=== PATIENT | male | born 1960 | race Caucasian/White ===

== ENCOUNTER 2022-06-08 07:57 | Outpatient (REF) | payer MEDICAID, SELFPAY ==
[2022-06-08 08:10] LABS: MANUAL DIFF FLAG NO
[2022-06-08 08:20] LABS: Basophils Percent Auto 0.7 % (0-2); Eosinophils Absolute Auto 0.2 X10*3/uL (0.0-0.4); Eosinophils Percent Auto 2.5 % (0-4); Hematocrit 46.3 % (42.0-52.0); Hemoglobin 15.5 g/dl (14.0-18.0); Imm Gran Abs Auto 0.02 X10*3/uL (0.00-0.03); Imm Gran Pct Auto 0.3 % (0.0-0.4); Lymphocytes Absolute Auto 2.3 X10*3/uL (1.2-4.9); Lymphocytes Percent Auto 38.7 % (20-40); Mean Corpuscular HGB Conc 33.5 g/dl (31.0-36.0); Mean Corpuscular Hemoglobin 30.4 pg (27.0-33.0); Mean Corpuscular Volume 90.8 fL (80.0-98.0); Mean Platelet Volume 9.5 fL (9.4-12.4); Monocytes Absolute Auto 0.5 X10*3/uL (0.1-1.2); Monocytes Percent Auto 8.7 % (2-11); Neutrophils Absolute Auto 2.9 x10*3/uL (2.0-8.3); Neutrophils Percent Auto 49.1 % (45-73); Platelet Count 176 X10*3/uL (160-400); Red Cell Distribution Width 12.9 % (11.0-16.0)
[2022-06-08 08:30] LABS: Estimated Average Glucose 226 mg/dL; Hemoglobin A1c % 9.5 %
[2022-06-08 09:16] LABS: Alanine Aminotransferase 31 U/L (0-40); Albumin Level 4.5 g/dL (3.5-5.0); Alkaline Phosphatase 122 U/L (39-117); Anion Gap 16 (12-20); Aspartate Amino Transferase 24 U/L (5-37); Bilirubin Total 0.4 mg/dL (0.0-1.0); Blood Urea Nitrogen 16 mg/dL (9-16); Calcium 9.2 mg/dL (8.4-10.2); Carbon Dioxide 24 mmol/L (22-29); Chloride 106 mmol/L (96-108); Cholesterol 249 mg/dL; Estimated Glomerular Filt Rate > 60; Glucose Random 153 mg/dL (60-115); HDL Cholesterol 36 mg/dL; LDL Cholesterol Calculated 171 mg/dl; Potassium 4.3 mmol/L (3.3-5.1); Sodium 142 mmol/L (135-145); Total Protein 7.1 g/dL (6.5-8.0); Triglycerides 213 mg/dL
[2022-06-08 09:23] LABS: Creatinine Urine 108.16 mg/dL; Microalbum/Creatinine Ratio Ur 4.6 ug/mg cr
[2022-06-08 09:42] LABS: Prostate Specific Antigen Scr 0.12 ng/mL (<0.05-4.0)
[2022-06-08 10:01] LABS: Vitamin B12 239 pg/mL (200-900)
== END 2022-06-08 07:58 | disposition home or self-care (01) ==
LOC: HO.LAB 07:57
PROVIDERS: PCP Internal Medicine; Visit Provider Internal Medicine
DX: Z00.01 Encounter for general adult medical examination with abnormal findings (principal); Z12.5 Encounter for screening for malignant neoplasm of prostate; E11.65 Type 2 diabetes mellitus with hyperglycemia; E78.00 Pure hypercholesterolemia, unspecified; G56.02 Carpal tunnel syndrome, left upper limb; I10 Essential (primary) hypertension; N40.1 Benign prostatic hyperplasia with lower urinary tract symptoms; Z86.010 Personal history of colon polyps
CPT/HCPCS: 36415; 80053; 80061; 82043; 82607; 83036; 84153; 84443; 85025

== ENCOUNTER 2022-09-21 09:18 | Outpatient (REF) | payer MEDICAID, SELFPAY ==
[2022-09-21 10:24] LABS: Estimated Average Glucose 280 mg/dL; Hemoglobin A1c % 11.4 %
[2022-09-21 11:20] LABS: Alanine Aminotransferase 30 U/L (0-40); Albumin Level 4.5 g/dL (3.5-5.0); Alkaline Phosphatase 126 U/L (39-117); Anion Gap 15 (12-20); Aspartate Amino Transferase 26 U/L (5-37); Bilirubin Total 0.7 mg/dL (0.0-1.0); Blood Urea Nitrogen 21 mg/dL (9-16); Calcium 9.6 mg/dL (8.4-10.2); Carbon Dioxide 24 mmol/L (22-29); Chloride 106 mmol/L (96-108); Cholesterol 140 mg/dL; Estimated Glomerular Filt Rate > 60; Glucose Random 190 mg/dL (60-115); HDL Cholesterol 32 mg/dL; LDL Cholesterol Calculated 63 mg/dl; Potassium 4.1 mmol/L (3.3-5.1); Sodium 141 mmol/L (135-145); Total Protein 7.1 g/dL (6.5-8.0); Triglycerides 229 mg/dL
== END 2022-09-21 09:19 | disposition home or self-care (01) ==
LOC: HO.LAB 09:18
PROVIDERS: PCP Internal Medicine; Visit Provider Internal Medicine
DX: E11.65 Type 2 diabetes mellitus with hyperglycemia (principal); E78.00 Pure hypercholesterolemia, unspecified; I10 Essential (primary) hypertension; N40.1 Benign prostatic hyperplasia with lower urinary tract symptoms
CPT/HCPCS: 36415; 80053; 80061; 83036

== ENCOUNTER 2023-01-21 07:34 | Outpatient (REF) | payer MEDICAID, SELFPAY ==
[2023-01-21 08:32] LABS: Estimated Average Glucose 186 mg/dL; Hemoglobin A1c % 8.1 %
[2023-01-21 08:37] LABS: Alanine Aminotransferase 31 U/L (0-40); Albumin Level 4.4 g/dL (3.5-5.0); Alkaline Phosphatase 110 U/L (39-117); Anion Gap 11 (12-20); Aspartate Amino Transferase 19 U/L (5-37); Bilirubin Total 0.4 mg/dL (0.0-1.0); Blood Urea Nitrogen 18 mg/dL (9-16); Calcium 9.5 mg/dL (8.4-10.2); Carbon Dioxide 29 mmol/L (22-29); Chloride 105 mmol/L (96-108); Estimated Glomerular Filt Rate > 60; Glucose Random 245 mg/dL (60-115); Potassium 5.2 mmol/L (3.3-5.1); Sodium 140 mmol/L (135-145); Total Protein 6.9 g/dL (6.5-8.0)
== END 2023-01-21 07:35 | disposition home or self-care (01) ==
LOC: HO.LAB 07:34
PROVIDERS: PCP Internal Medicine; Visit Provider Internal Medicine
DX: E11.9 Type 2 diabetes mellitus without complications (principal); I10 Essential (primary) hypertension; N40.0 Benign prostatic hyperplasia without lower urinary tract symptoms; Z86.010 Personal history of colon polyps
CPT/HCPCS: 36415; 80053; 83036

== ENCOUNTER 2023-05-14 22:56 | Emergency (ER) | payer MEDICAID, SELFPAY ==
--- NOTE | ~2023-05-14 | CT_ITS ---
EXAMINATION: CT HEAD WITHOUT CONTRAST CLINICAL INFORMATION: Acute right-sided headache COMPARISON: None. TECHNIQUE: Contiguous axial imaging was performed from the skull base to vertex without intravenous administration of contrast. Coronal and sagittal reformatted images are performed at the CT scanner. [This CT examination was performed using dose optimization techniques as appropriate, variously including the following: *Automated exposure control *Adjustment of mA and/or kV according to patient size (this includes techniques or standardized protocols for targeted exams where dose is matched to indication/reason for exam; i.e. extremities or head) *Use of iterative reconstruction technique] DLP: 623 mGy-cm. FINDINGS: There is no evidence of acute intracranial hemorrhage or territorial infarction. No abnormal mass-effect or midline shift is seen. Zamorano to white matter differentiation is well preserved. No extra-axial fluid collections are identified. The ventricles are normal in size. There is no abnormal attenuation within the brain parenchyma. There is no osseous abnormality. The mastoid air cells and visualized portions of the paranasal sinuses are well-aerated. CT/CT head/brain wo IV con IMPRESSION: No acute intracranial pathology.
[2023-05-14 22:59] VITALS: BP 166/7; PULSE 65; RESP 18; TEMP 36.9; O2SAT 97; BMI 27.8
--- NOTE | 2023-05-14 23:05 | ED.HA ---
HPI - Headache General Chief Complaint: Stroke Stated Complaint: head pain,numbness Time Seen by Provider: 05/14/23 23:01 Source: patient Mode of arrival: ambulatory Limitations: no limitations History of Present Illness HPI Narrative: Patient diabetic complaining pain in the right temporal area since he woke up in the morning sensory to touch slight nausea no vomiting patient noticed slight numbness on the right side of the face no weakness Related Data Previous Rx's Medication Instructions Recorded ibuprofen 600 mg tablet 600 mg PO Q6H PRN fever or pain 05/15/23 #30 tabs Allergies Allergy/AdvReac Type Severity Reaction Status Date / Time No Known Allergies Allergy Verified 05/14/23 22:59 Review of Systems Review of Systems: Yes all other systems are reviewed and are negative [facility] Social History Social History Alcohol intake: never Smoked in Last 30 Days: No Use of substances other than those prescribed or required for medical reasons: No Advance Directives: No Advance Directives Information Provided: Yes Physical Exam Vital Signs: Vital Signs: Last Vital Signs Temp 98.5 F 05/15/23 01:38 Pulse 56 05/15/23 01:38 Resp 16 05/15/23 01:38 BP 149/77 H 05/15/23 01:38 Pulse Ox 98 05/15/23 01:38 O2 Del Method Room Air 05/15/23 01:38 BMI result Body Mass Index 27.8 Appearance: Alert. Oriented X3. No acute distress. Eyes: PERRLA, No Nystagmus ENT: Pharynx normal. Oral Mucosa moist tender to touch right temporal area, no rash, temporal artery nontender Neck: Normal inspection. Neck supple. CVS: Normal heart rate and rhythm. Pulses normal. Respiratory: No respiratory distress. Equal air entry bilateral, no wheezing/rales/rhonchi Abdomen: Soft and nontender. Bowel sounds are present, no mass palpable, no CVA tenderness Skin: Skin warm and dry. Normal skin color. Normal skin turgor. Extremities: No lower extremity edema. No calf tenderness Neuro: Oriented X 3. No motor deficit. No sensory deficit.No cerebellar signs , cranial nerves II-XII intact NIH Stroke Scale Internal: Initial- Upon Arrival Level of Consciousness: Alert Level of Consciousness Questions: Answers both questions correctly Level of Consciousness Commands: Performs both tasks correctly Best Gaze: Normal Visual: No visual loss Facial Palsy: Normal Motor Arm (Right): No drift Motor Arm (Left): No drift Motor Leg (Right): No drift Motor Leg (Left): No drift Limb Ataxia: Absent Sensory: Normal Best Language: No aphasia Dysarthia: Normal Extinction and Inattention: No abnormality Score: 0 Medications Administered Discontinued Medications Generic Name Dose Route Start Last Admin Trade Name Freq PRN Reason Stop Dose Admin Ketorolac Tromethamine 30 mg 05/15/23 00:19 05/15/23 00:58 Ketorolac Tromethamine 30 Mg/Ml Vial IVPUSH 05/15/23 00:20 30 mg ONCE ONE Administration Lidocaine HCl 5 ml 05/15/23 00:59 05/15/23 01:12 Lidocaine Hcl 2 % Mpf 5 Ml Vial INFILTRATI 05/15/23 01:00 5 ml ONCE ONE Administration Medical Decision Making Medical Decision Making [facility] Narrative: Patient with right scalp pain in C2-C3 dermatomal pattern, no skin rash noticed CT scan negative labs are stable likely patient has tension headache versus occipital neuralgia. Lidocaine 2% was injected at origin of C2 nerve and patient felt much better and pain relieved Differential Diagnosis Differential Diagnoses: The differential diagnosis associated with the presentation includes Tension headache/migraine headaches/occipital neuralgia/temporal arteritis/SAH Lab Data [facility] Lab Attestation statement: I reviewed the patient's lab results. 05/14/23 23:10 05/14/23 23:10 Labs: Lab Results 05/14/23 05/14/23 05/14/23 Range/Units 23:10 23:10 23:10 WBC 10.1 (4.8-10.8) X10*3/uL RBC 4.60 (4.60-5.80) X10*6/uL Hgb 14.4 (14.0-18.0) g/dl Hct 42.7 (42.0-52.0) % MCV 92.8 (80.0-98.0) fL MCH 31.3 (27.0-33.0) pg MCHC 33.7 (31.0-36.0) g/dl RDW 14.0 (11.0-16.0) % Plt Count 158 L (160-400) X10*3/uL MPV 9.8 (9.4-12.4) fL Immature Gran % (Auto) 0.2 (0.0-0.4) % Neut % (Auto) 69.8 (45-73) % Lymph % (Auto) 19.8 L (20-40) % Clark % (Auto) 8.4 (2-11) % Eos % (Auto) 1.4 (0-4) % Baso % (Auto) 0.4 (0-2) % Lymph # (Auto) 2.0 (1.2-4.9) X10*3/uL Clark # (Auto) 0.8 (0.1-1.2) X10*3/uL Eos # (Auto) 0.1 (0.0-0.4) X10*3/uL Baso # (Auto) 0.0 (0.0-0.2) X10*3/uL Abs Immat Gran (auto) 0.02 (0.00-0.03) X10*3/uL Absolute Neuts (auto) 7.0 (2.0-8.3) x10*3/uL Absolute Nucleated RBC 0.000 (0.0-0.012) X10*3/uL Nucleated RBC % (auto) 0.0 (0.0-0.2) /100WBC ESR 7 (0-15) MM/HR PT (11.1-13.3) SEC INR (0.9-1.1) Sodium 142 (135-145) mmol/L Potassium 4.5 (3.3-5.1) mmol/L Chloride 104 (96-108) mmol/L Carbon Dioxide 29 (22-29) mmol/L Anion Gap 14 (12-20) BUN 14 (9-16) mg/dL Creatinine 0.97 (0.5-1.4) mg/dL Estim Creat Clear Calc 85.5 Estimated GFR > 60 POC Glucose (60-115) mg/dL Random Glucose 314 H (60-115) mg/dL Calcium 10.1 D (8.4-10.2) mg/dL Total Bilirubin 0.2 (0.0-1.0) mg/dL AST 17 (5-37) U/L ALT 19 (0-40) U/L Alkaline Phosphatase 138 H (39-117) U/L Total Protein 7.6 (6.5-8.0) g/dL Albumin 4.3 (3.5-5.0) g/dL 05/14/23 05/14/23 Range/Units 23:10 23:10 WBC (4.8-10.8) X10*3/uL RBC (4.60-5.80) X10*6/uL Hgb (14.0-18.0) g/dl Hct (42.0-52.0) % MCV (80.0-98.0) fL MCH (27.0-33.0) pg MCHC (31.0-36.0) g/dl RDW (11.0-16.0) % Plt Count (160-400) X10*3/uL MPV (9.4-12.4) fL Immature Gran % (Auto) (0.0-0.4) % Neut % (Auto) (45-73) % Lymph % (Auto) (20-40) % Clark % (Auto) (2-11) % Eos % (Auto) (0-4) % Baso % (Auto) (0-2) % Lymph # (Auto) (1.2-4.9) X10*3/uL Clark # (Auto) (0.1-1.2) X10*3/uL Eos # (Auto) (0.0-0.4) X10*3/uL Baso # (Auto) (0.0-0.2) X10*3/uL Abs Immat Gran (auto) (0.00-0.03) X10*3/uL Absolute Neuts (auto) (2.0-8.3) x10*3/uL Absolute Nucleated RBC (0.0-0.012) X10*3/uL Nucleated RBC % (auto) (0.0-0.2) /100WBC ESR (0-15) MM/HR PT 12.2 (11.1-13.3) SEC INR 1.0 (0.9-1.1) Sodium (135-145) mmol/L Potassium (3.3-5.1) mmol/L Chloride (96-108) mmol/L Carbon Dioxide (22-29) mmol/L Anion Gap (12-20) BUN (9-16) mg/dL Creatinine (0.5-1.4) mg/dL Estim Creat Clear Calc Estimated GFR POC Glucose 308 H (60-115) mg/dL Random Glucose (60-115) mg/dL Calcium (8.4-10.2) mg/dL Total Bilirubin (0.0-1.0) mg/dL AST (5-37) U/L ALT (0-40) U/L Alkaline Phosphatase (39-117) U/L Total Protein (6.5-8.0) g/dL Albumin (3.5-5.0) g/dL Procedures Nerve Block Nerve Block 1: Time out performed: Yes Local Anesthetic: lidocaine 2% Amount of anesthesia used (mL): 3 Side: right Nerve Blocks: occipital Intraoral Nerve Block: supraperiosteal Procedure Successful: Yes Patient Tolerated Procedure: well Complications: none Discharge Plan Discharge Clinical Impression: Occipital neuralgia of right side Patient Disposition: Home, Self-Care Instructions: Acute Headache (ED) Additional Instructions: Likely you have headache from occipital neuralgia, local anesthetic was given that should relieve the pain Ibuprofen for pain if continued Follow with PCP Prescriptions: New ibuprofen 600 mg tablet 600 mg PO Q6H PRN (Reason: fever or pain) Qty: 30 0RF Interventions: ED Discharge Assessment Last Done: 05/15/23 01:58 Discharge Date/Time: 05/15/23 01:58
--- NOTE | 2023-05-14 23:15 | PC.NURSE ---
Pt brought in from waiting room via wheelchair, reporting 7/10 constant right sided headache, with numbness. Pt stated with movement i feel like im getting hit in the back of the head IV line placed in RAC, blood work collected and sent to lab. Pt awaiting CAT scan results. PERRLA, no facial droop noted, equal hand grasp, no arm drift noted, equal strength in both legs. No limb ataxia noted, pt recalled three words from beginning of assessment at the end. Sensation felt bilaterally, and on head. Pt medicated per nov.
[2023-05-14 23:16] LABS: MANUAL DIFF FLAG NO
[2023-05-14 23:20] LABS: Basophils Percent Auto 0.4 % (0-2); Eosinophils Absolute Auto 0.1 X10*3/uL (0.0-0.4); Eosinophils Percent Auto 1.4 % (0-4); Hematocrit 42.7 % (42.0-52.0); Hemoglobin 14.4 g/dl (14.0-18.0); Imm Gran Abs Auto 0.02 X10*3/uL (0.00-0.03); Imm Gran Pct Auto 0.2 % (0.0-0.4); Lymphocytes Percent Auto 19.8 % (20-40); Mean Corpuscular HGB Conc 33.7 g/dl (31.0-36.0); Mean Corpuscular Hemoglobin 31.3 pg (27.0-33.0); Mean Corpuscular Volume 92.8 fL (80.0-98.0); Mean Platelet Volume 9.8 fL (9.4-12.4); Monocytes Absolute Auto 0.8 X10*3/uL (0.1-1.2); Monocytes Percent Auto 8.4 % (2-11); Neutrophils Percent Auto 69.8 % (45-73); Platelet Count 158 X10*3/uL (160-400); White Blood Count 10.1 X10*3/uL (4.8-10.8)
[2023-05-14 23:23] LABS: Glucose, Whole Blood 308 mg/dL (60-115)
[2023-05-14 23:25] LABS: Prothrombin Time 12.2 SEC (11.1-13.3)
--- NOTE | 2023-05-14 23:26 | ECG_ITS ---
Test Reason : STROKE Blood Pressure : / mmHG Vent. Rate : 056 BPM Atrial Rate : 056 BPM P-R Int : 156 ms QRS Dur : 100 ms QT Int : 412 ms P-R-T Axes : 068 022 042 degrees QTc Int : 397 ms Sinus bradycardia Incomplete right bundle branch block Borderline ECG No previous ECGs available Referred By: Norman Milner Electronically Signed By:SHANNON PERKINS
[2023-05-14 23:35] LABS: Alanine Aminotransferase 19 U/L (0-40); Albumin Level 4.3 g/dL (3.5-5.0); Alkaline Phosphatase 138 U/L (39-117); Anion Gap 14 (12-20); Aspartate Amino Transferase 17 U/L (5-37); Bilirubin Total 0.2 mg/dL (0.0-1.0); Blood Urea Nitrogen 14 mg/dL (9-16); Calcium 10.1 mg/dL (8.4-10.2); Carbon Dioxide 29 mmol/L (22-29); Chloride 104 mmol/L (96-108); Creatinine Clr Calc Pharmacy 85.5; Estimated Glomerular Filt Rate > 60; Glucose Random 314 mg/dL (60-115); Potassium 4.5 mmol/L (3.3-5.1); Sodium 142 mmol/L (135-145); Total Protein 7.6 g/dL (6.5-8.0)
[2023-05-14 23:54] LABS: Erythrocyte Sedimentation Rate 7 MM/HR (0-15)
[2023-05-15 00:17] VITALS: BP 131/65; PULSE 58; RESP 16; TEMP 37.1; O2SAT 98
[2023-05-15] MEDS: Ketorolac Tromethamine 30 MG/ML VIAL IVPUSH (00:58)
[2023-05-15] MEDS: Lidocaine HCl 2 % MPF 5 ML VIAL INFILTRATI (01:12)
[2023-05-15 01:38] VITALS: BP 149/77; PULSE 56; RESP 16; TEMP 36.9; O2SAT 98
== END 2023-05-15 01:58 | disposition home or self-care (01) ==
PROVIDERS: Emergency Provider Internal Medicine
DX: M54.81 Occipital neuralgia (principal); R51.9 Headache, unspecified
CPT/HCPCS: 36415; 64405; 70450; 80053; 82947; 85025; 85610; 85652; 93005; 96374; 99285; J1885

== ENCOUNTER 2023-05-19 07:54 | Outpatient (REF) | payer MEDICAID, SELFPAY ==
[2023-05-19 08:13] LABS: MANUAL DIFF FLAG NO
[2023-05-19 08:49] LABS: Basophils Percent Auto 0.6 % (0-2); Eosinophils Absolute Auto 0.1 X10*3/uL (0.0-0.4); Eosinophils Percent Auto 2.6 % (0-4); Hematocrit 43.6 % (42.0-52.0); Hemoglobin 14.5 g/dl (14.0-18.0); Imm Gran Abs Auto 0.01 X10*3/uL (0.00-0.03); Imm Gran Pct Auto 0.2 % (0.0-0.4); Lymphocytes Absolute Auto 1.9 X10*3/uL (1.2-4.9); Lymphocytes Percent Auto 40.7 % (20-40); Mean Corpuscular HGB Conc 33.3 g/dl (31.0-36.0); Mean Corpuscular Hemoglobin 30.2 pg (27.0-33.0); Mean Corpuscular Volume 90.8 fL (80.0-98.0); Mean Platelet Volume 9.5 fL (9.4-12.4); Monocytes Absolute Auto 0.4 X10*3/uL (0.1-1.2); Monocytes Percent Auto 8.7 % (2-11); Neutrophils Absolute Auto 2.2 x10*3/uL (2.0-8.3); Neutrophils Percent Auto 47.2 % (45-73); Platelet Count 187 X10*3/uL (160-400); Red Cell Distribution Width 13.5 % (11.0-16.0); White Blood Count 4.6 X10*3/uL (4.8-10.8)
[2023-05-19 08:57] LABS: Estimated Average Glucose 186 mg/dL; Hemoglobin A1c % 8.1 % (<6.0)
[2023-05-19 09:09] LABS: Alanine Aminotransferase 21 U/L (0-40); Albumin Level 4.3 g/dL (3.5-5.0); Alkaline Phosphatase 88 U/L (39-117); Anion Gap 11 (12-20); Aspartate Amino Transferase 19 U/L (5-37); Bilirubin Total 0.4 mg/dL (0.0-1.0); Blood Urea Nitrogen 25 mg/dL (9-16); Calcium 10.1 mg/dL (8.4-10.2); Carbon Dioxide 27 mmol/L (22-29); Chloride 106 mmol/L (96-108); Cholesterol 175 mg/dL (<200); Estimated Glomerular Filt Rate > 60; Glucose Random 114 mg/dL (60-115); HDL Cholesterol 31 mg/dL (>40); LDL Cholesterol Calculated 101 mg/dL (<100); Potassium 4.9 mmol/L (3.3-5.1); Sodium 139 mmol/L (135-145); Total Protein 7.2 g/dL (6.5-8.0); Triglycerides 216 mg/dL (<150)
[2023-05-19 09:26] LABS: Prostate Specific Antigen 0.21 ng/mL (<0.05-4.0)
[2023-05-19 09:57] LABS: Creatinine Urine 93.63 mg/dL; Microalbumin Urine < 5.0 mg/L
== END 2023-05-19 07:55 | disposition home or self-care (01) ==
LOC: HO.LAB 07:54
PROVIDERS: PCP Internal Medicine; Visit Provider Internal Medicine
DX: Z12.5 Encounter for screening for malignant neoplasm of prostate (principal); E11.9 Type 2 diabetes mellitus without complications; E78.00 Pure hypercholesterolemia, unspecified; G44.209 Tension-type headache, unspecified, not intractable; I10 Essential (primary) hypertension; N40.0 Benign prostatic hyperplasia without lower urinary tract symptoms
CPT/HCPCS: 36415; 80053; 80061; 82570; 83036; 84153; 85025

== ENCOUNTER 2023-09-02 08:58 | Outpatient (REF) | payer MEDICAID, SELFPAY ==
[2023-09-02 10:44] LABS: Alanine Aminotransferase 20 U/L (0-40); Albumin Level 4.4 g/dL (3.5-5.0); Alkaline Phosphatase 122 U/L (39-117); Anion Gap 14 (12-20); Aspartate Amino Transferase 16 U/L (5-37); Bilirubin Total 0.4 mg/dL (0.0-1.0); Blood Urea Nitrogen 23 mg/dL (9-16); Calcium 9.6 mg/dL (8.4-10.2); Carbon Dioxide 27 mmol/L (22-29); Chloride 106 mmol/L (96-108); Estimated Glomerular Filt Rate > 60; Glucose Random 187 mg/dL (60-115); Potassium 4.4 mmol/L (3.3-5.1); Sodium 143 mmol/L (135-145); Total Protein 7.6 g/dL (6.5-8.0)
[2023-09-02 10:54] LABS: Estimated Average Glucose 183 mg/dL
[2023-09-02 11:13] LABS: Vitamin B12 339 pg/mL (200-900)
== END 2023-09-02 08:59 | disposition home or self-care (01) ==
LOC: HO.LAB 08:58
PROVIDERS: PCP Internal Medicine; Visit Provider Internal Medicine
DX: Z00.00 Encounter for general adult medical examination without abnormal findings (principal); E11.65 Type 2 diabetes mellitus with hyperglycemia; E78.00 Pure hypercholesterolemia, unspecified; F32.9 Major depressive disorder, single episode, unspecified
CPT/HCPCS: 36415; 80053; 82607; 83036

== ENCOUNTER 2023-09-27 22:46 | Emergency (ER) | payer MEDICAID, SELFPAY ==
[2023-09-27 23:08] VITALS: BP 168/87; PULSE 57; RESP 18; TEMP 36.5; O2SAT 97; BMI 28.7
== END 2023-09-28 03:23 | disposition left against medical advice (07) ==
PROVIDERS: Emergency Provider Emergency Medicine
DX: K59.09 Other constipation (principal)
CPT/HCPCS: 99281

== ENCOUNTER → 2023-09-28 09:09 | Day surgery (SDC) | payer MEDICAID, SELFPAY ==
[2023-09-26 14:42] VITALS: BMI 28.4
--- NOTE | 2023-09-27 09:13 | HO.ANESPROP2 ---
HPI - Anesthesia Eval Consult details Narrative: 62yo M for Colonoscopy Anesthesia Pre-Procedure Meds Is the patient on any of the following meds?: Dulaglutide (Trulicity) and Any other SGL-1 drugs or drugs that delay gastric emptying (Januvia) [facility] Past Medical History Medical History (Updated 09/26/23 @ 14:39 by Jessica Aguilar RN) HTN (hypertension) Diabetes Surgical History Surgical History (Updated 09/26/23 @ 14:39 by Jessica Aguilar RN) H/O colonoscopy Social History Social History Alcohol intake: never Meds Allergies Allergy/AdvReac Type Severity Reaction Status Date / Time No Known Allergies Allergy Verified 05/14/23 22:59 Home Medications Medication Instructions Recorded Confirmed Last Taken Type aspirin 81 mg tablet,delayed 81 mg PO DAILY 09/26/23 09/26/23 Unknown History release dulaglutide 0.75 mg/0.5 mL 0.75 mg subcut QWEEK 09/26/23 09/26/23 Unknown History subcutaneous pen injector (Trulicity) empagliflozin 25 mg tablet 25 mg PO QAM 09/26/23 09/26/23 Unknown History (Jardiance) lisinopril 5 mg tablet 5 mg PO DAILY 09/26/23 09/26/23 Unknown History metformin 1,000 mg tablet 1,000 mg PO BID 09/26/23 09/26/23 Unknown History sitagliptin phosphate 100 mg 100 mg PO DAILY 09/27/23 Unknown History tablet (Januvia) Exam Height,Weight and Vital Signs: Height 5 ft 11 in Weight 92.533 kg Pertinent Lab Results Pertinent Lab Results: Laboratory Tests 05/19/23 09/02/23 08:12 09:17 WBC 4.6 L Hgb 14.5 Hct 43.6 Plt Count 187 Sodium 143 Potassium 4.4 Chloride 106 Carbon Dioxide 27 BUN 23 H Creatinine 1.04 Narrative Narrative: EKG 05/2023 Vent. Rate : 056 BPM Atrial Rate : 056 BPM P-R Int : 156 ms QRS Dur : 100 ms QT Int : 412 ms P-R-T Axes : 068 022 042 degrees QTc Int : 397 ms Sinus bradycardia Incomplete right bundle branch block Borderline ECG No previous ECGs available Assessment and Plan Assessment Anesthesia Assessment: Chart Reviewed
--- NOTE | 2023-09-28 09:36 | PC.NURSE ---
Patient completed prescribed colon prep without results. Fleets enema x 1 given in SSS, returns are formed stool and dark brown liquid. Dr Barnes advised, he will speak with patient
[2023-09-28] MEDS: Sodium Phosphate,Mono-Dibasic 133 ML ENEMA PR (09:39)
[2023-09-28 09:43] VITALS: BP 133/77; PULSE 56; RESP 16; TEMP 35.9; O2SAT 98
--- NOTE | 2023-09-28 09:53 | PC.NURSE ---
Procedure cancelled by Dr Barnes
== END ==
PROVIDERS: PCP Internal Medicine; Visit Provider Internal Medicine
DX: Z12.11 Encounter for screening for malignant neoplasm of colon (principal); Z53.8 Procedure and treatment not carried out for other reasons; Z86.010 Personal history of colon polyps

== ENCOUNTER 2023-11-03 14:41 | Outpatient (AMB) | payer MEDICAID, SELFPAY ==
--- NOTE | 2023-11-03 15:01 | A.OFFVIS_ITS ---
Intake Intake Visit Reasons: enlarged prostate w/ lower urinary tract symptoms Intake Note: NEW Patient presents today to established treatment for: Meds- Finasteride & Tamsulosin Allergies to Antibiotic- No Known Allergies Blood Thinner- Aspirin Post Void Residual: 21 mL Breaker Tender Required: No Accompanied by: Self / Same As Patient Allergies No Known Allergies Allergy (Verified 09/27/23 23:08) HPI HPI Comments History of Present Illness Details 62-year-old male with complaints hesitan cy and decreased force of stream States he has been on prostate medication for over a year. The patient is on finasteride 5 mg daily and tamsulosin 0.4 mg daily Review of consult referral notes PSA 05/26/2022--0.12 Comorbidity diabetes Bladder scan PVR today was 21 mL Prostate exam mild to moderately enlarged, smooth 11/03/2023--plan-- Ultrasound retroperitoneum PSA I want him to increase the tamsulosin to twice a day and continue with the Proscar daily Follow-up office cystoscopy. [facility] Medical History HTN (hypertension) Diabetes Surgical History H/O colonoscopy Social History Alcohol intake: never Questionnaire AUA Symptom Score AUA Incomplete emptying - It does not feel like I empty my bladder all the way.: 3 - About half the time Frequency - I have to go again less than two hours after I finish urinating.: 4 - More than half the time Intermittency - I stop and start again several times when I urinate.: 5 - Almost always Urgency - It is hard to wait when I have to urinate.: 2 - Less than half the time Weak stream - I have a weak urinary stream.: 5 - Almost always Straining - I have to push or strain to begin urination.: 3 - About half the time Nocturia - I get up to urinate after I go to bed until the time I get up in the morning.: 3 times AUA Symptom Score: 25 Source: Andres FERNÁNDEZ, Elmo WATERS Jr, O'Narcisa MP, et al, and the Measurement Committee of the [place] [employer]. The [place] [employer] symptom index for benign prostatic hyperplasia. J Urol. 1992; 148: 0909-9828. Copyright 1992 [place] [employer] Review of Systems Const All systems reviewed & are unremarkable except as noted in HPI and below Reports no additional complaints Eyes Reports no additional complaints ENT Reports no additional complaints Card Denies dyspnea Resp Denies cough and Denies dyspnea GI Reports no additional complaints Musc Reports no additional complaints Skin/Breast Denies rash and Denies unusual bruising Neuro Reports no additional complaints Psych Reports no additional complaints Endo Reports no additional complaints Db/Lymph Reports no additional complaints Aller/Immun Reports no additional complaints Physical Exam Const General: healthy appearing, no acute distress and well developed Orientation/consciousness: patient oriented x3 HEENT Head: Yes normocephalic and Yes atraumatic Eyes Conjunctivae: conjunctivae normal Neck Neck: Yes normal visual inspection Chest Chest palpation & inspection: normal inspection of the chest Resp Effort & Inspection: normal respiratory effort Cardio Rate: regular rate GI Inspection: Yes normal to inspection Palpation (GI): Soft to palpation Other: Prostate Exam: Moderately enlarged smooth no suspicious nodules palpated Skin General skin exam: no rashes or lesions noted Neuro General: patient oriented x3 Extrem General: No pedal edema Psych Appearance: grossly normal Affect: normal affect Office Procedures Post Void Residual Post Residual Void Post Void Residual (PVR): 21 26203-[id number] Void Residual by ultrasound Results AMB Urinalysis, Automated UA Leukoctes 0 Pj/uL Last Edit by GARRET Sanford on 11/03/23 15:28 UA Nitrite Negative Last Edit by GARRET Sanford on 11/03/23 15:28 UA Urobilinogen 0.2 mg/dL Last Edit by GARRET Sanford on 11/03/23 15:2 8 UA Protein 0 mg/dL Last Edit by GARRET Sanford on 11/03/23 15:28 UA pH 5.5 Last Edit by GARRET Sanford on 11/03/23 15:28 UA Blood 0 Reggie/uL Last Edit by GARRET Sanford on 11/03/23 15:28 UA Specific [place] 1.025 Last Edit by GARRET Sanford on 11/03/23 15: 28 UA Ketone Negative Last Edit by GARRET Sanford on 11/03/23 15:28 UA Bilirubin 0 mg/dL Last Edit by GARRET Sanford on 11/03/23 15:28 UA Glucose 1000 mg/dL Last Edit by GARRET Sanford on 11/03/23 15:28 3+ Letha Ron 11/03/23 15:28 Results Reviewed Results Reviewed: Laboratory Last Values Urine pH (Auto) 5.5 11/03/23 15:27 Specific [place] (Auto) 1.025 11/03/23 15:27 Urine Protein (Auto) 0 mg/dL 11/03/23 15:27 Glucose (UA)(Auto) 1000 mg/dL 11/03/23 15:27 Urine Ketones (Auto) Negative 11/03/23 15:27 Urine Blood (Auto) 0 Reggie/uL 11/03/23 15:27 Urine Nitrite (Auto) Negative 11/03/23 15:27 Urine Bilirubin (Auto) 0 mg/dL 11/03/23 15:27 Urine Urobilinogen (Auto) 0.2 mg/dL 11/03/23 15:27 Leukocyte Esterase (Auto) 0 Pj/uL 11/03/23 15:27 Assessment & Plan Assessment & Plan (1) BPH loc w urin obs/LUTS: Code(s): N40.1 - Benign prostatic hyperplasia with lower urinary tract symptoms (2) Weak urinary stream: Code(s): R39.12 - Poor urinary stream (3) Nocturia: Code(s): R35.1 - Nocturia (4) Diabetes: Comment: NIDDM Code(s): E11.9 - Type 2 diabetes mellitus without complications Plan Ultrasound retroperitoneum PSA I want him to increase the tamsulosin to twice a day and continue with the Proscar daily Follow-up office cystoscopy. Orders: Orders AMB Post Void Residual by ultrasound 11/03/23 N39.8 - Other specified disorders of urinary system AMB Urinalysis Automated 11/03/23 Z13.9 - Encounter for screening, unspecified Quality Reporting (2019) Benign Prostatic Hyperplasia ([facility] 771) AUA symptom score: 25 Coding Level of Care Code New Pt Level 4 (81642) Diagnoses BPH loc w urin obs/LUTS N40.1 Weak urinary stream R39.12 Nocturia R35.1 Diabetes E11.9 CPT Codes Post Residual Void - PVR CPT Code: 06166-Ikhh Void Residual by ultrasound ([id number])
== END 2023-11-03 15:49 | disposition home or self-care (01) ==
PROVIDERS: PCP Internal Medicine; Visit Provider Urology
DX: Z13.9 Encounter for screening, unspecified (principal)
CPT/HCPCS: 99204

== ENCOUNTER → 2023-11-03 14:41 | Outpatient (BNVA) | payer MEDICAID, SELFPAY | PROVIDERS: PCP Internal Medicine; Visit Provider Urology | DX: N40.1 Benign prostatic hyperplasia with lower urinary tract symptoms (principal); R39.12 Poor urinary stream; R35.1 Nocturia; E11.9 Type 2 diabetes mellitus without complications | CPT/HCPCS: 51798; 81003; 99202 ==

== ENCOUNTER 2023-12-05 07:37 | Outpatient (REF) | payer MEDICAID, SELFPAY ==
[2023-12-05 08:39] LABS: Estimated Average Glucose 194 mg/dL; Hemoglobin A1c % 8.4 % (<6.0)
[2023-12-05 08:46] LABS: Alanine Aminotransferase 22 U/L (0-40); Albumin Level 4.3 g/dL (3.5-5.0); Alkaline Phosphatase 112 U/L (39-117); Anion Gap 13 (12-20); Aspartate Amino Transferase 18 U/L (5-37); Bilirubin Total 0.5 mg/dL (0.0-1.0); Blood Urea Nitrogen 19 mg/dL (9-16); Calcium 9.8 mg/dL (8.4-10.2); Carbon Dioxide 27 mmol/L (22-29); Chloride 107 mmol/L (96-108); Estimated Glomerular Filt Rate > 60; Glucose Random 197 mg/dL (60-115); Potassium 5.1 mmol/L (3.3-5.1); Sodium 142 mmol/L (135-145)
[2023-12-05 09:09] LABS: PSA,Total (Free>4and<10) 0.23 ng/mL (0.00-4.00)
== END 2023-12-05 07:38 | disposition home or self-care (01) ==
LOC: HO.LAB 07:37
PROVIDERS: Urology; PCP Internal Medicine; Visit Provider Internal Medicine
DX: N40.1 Benign prostatic hyperplasia with lower urinary tract symptoms (principal); E11.65 Type 2 diabetes mellitus with hyperglycemia; E78.00 Pure hypercholesterolemia, unspecified; I10 Essential (primary) hypertension
CPT/HCPCS: 36415; 80053; 83036; 84153

== ENCOUNTER 2023-12-09 08:41 | Outpatient (REF) | payer MEDICAID, SELFPAY ==
[2023-12-11 21:54] LABS: TS Negative Control Passed; TS Panel A 0; TS Panel B 0; TS Positive Control Passed; TSpotTB Negative (Negative)
== END 2023-12-09 08:42 | disposition home or self-care (01) ==
LOC: HO.LAB 08:41
PROVIDERS: PCP Internal Medicine; Visit Provider Internal Medicine
DX: E11.65 Type 2 diabetes mellitus with hyperglycemia (principal); E78.00 Pure hypercholesterolemia, unspecified; I10 Essential (primary) hypertension; N40.0 Benign prostatic hyperplasia without lower urinary tract symptoms; Z11.1 Encounter for screening for respiratory tuberculosis
CPT/HCPCS: 36415; 86481

== ENCOUNTER 2023-12-15 09:58 | Outpatient (AMB) | payer MEDICAID, SELFPAY ==
--- NOTE | 2023-12-15 11:21 | A.OFFVIS_ITS ---
Intake Visit Reasons: cysto/US/PSA Intake Note: Patient presents today for a CYSTOSCOPY Procedure: Meds: Finasteride & Tamsulosin Allergies to Antibiotic: No Known Allergies Blood Thinner: Aspirin Urinalysis test clear for Cysto? YES Disposable Uro-G HD Cystoscope Cannula: Lot: [id number] Exp: 08/04/2026 Environmental Auditor Required: No Chemical Supervisor: Chemical Supervisor Present Accompanied by: Self / Same As Patient Allergies No Known Allergies Allergy (Verified 12/30/23 10:10) HPI Comments Details: 12/15/2023--Drake is here for office cystoscopy. Had PSA 173185.23. Did not have renal ultrasound done. Cystoscopy findings: prostatic urethra -trilobar enlargement, bulbous urethra WNL, no suspicious bladder lesions visualized. The Patient complains of decrease in rigidity every erections. Discussed Viagra versus Cialis will try Viagra 100 mg half a tab to 1 tab 30 minutes to 1 hour prior sexual activity. Discussed treatment options for enlarged prostate to include GreenLight laser, TURP. Patient wants to continue meds for now. Discussed getting renal ultrasound completed. Plan-Viagra p.r.n., continue tamsulosin and Proscar, renal ultrasound ordered as long as normal will have nurses review results with patient. Otherwise follow- up in 6 months Review of chart: 11/03/2023--62-year-old male with complaints hesitancy and decreased force of stream States he has been on prostate medication for over a year. The patient is on finasteride 5 mg daily and tamsulosin 0.4 mg daily Review of consult referral notes PSA 05/26/2022--0.12 Comorbidity diabetes Bladder scan PVR today was 21 mL. Prostate exam mild to moderately enlarged, smooth plan--discussed Ultrasound retroperitoneum, PSA, I want him to increase the tamsulosin to twice a day and continue with the Proscar daily. Follow-up office cystoscopy. 12/15/2023--Plan-Viagra p.r.n., continue tamsulosin and Proscar, renal ultrasound ordered as long as normal will have nurses review results with patient. Otherwise follow-up in 6 months [facility] Medical History HTN (hypertension) Diabetes Surgical History H/O colonoscopy Social History Alcohol intake: never Advance Directives: No Advance Directives Information Provided: Yes Review of Systems Const All systems reviewed & are unremarkable except as noted in HPI and below Reports no additional complaints Eyes Reports no additional complaints ENT Reports no additional complaints Card Reports no additional complaints Resp Reports no additional complaints GI Reports no additional complaints Reports as per HPI Musc Reports no additional complaints Skin/Breast Reports system reviewed and no additional complaints, except as documented Neuro Reports no additional complaints Psych Reports no additional complaints Endo Reports no additional complaints Db/Lymph Reports no additional complaints Aller/Immun Reports no additional complaints Office Procedures Cystoscopy Consent Discussed risk and benefit or proposed procedure with the patient. Information consent for procedure given to the patient. Discussed technical aspects, risks, benefits and alternatives in full. Addressed all of the patient's questions and concerns regarding the procedure. The patient demonstrated knowledge and understanding. They wish to proceed with this procedure. Preparation The patient was prepped in the usual manner. A sample shoe inspector and reworker was present and in the room. Genitalia was prepped with betadine solution in a sterile manner. Lidocaine Jelly 2% was placed into the urethra and 16Fr flexible Olympus cystoscope was inserted into the meatus after adequate lubrication. Time out per protocol performed. Bladder Inspection Bladder Inspection: The bladder was inspected in its entirety with utilization retroflexion displaying: Tumor(s): None visualized Trabeculation: Mild Mucosal Erthema: Not applicable Orifices: normal shape and position Urethra: normal Cystoscopy findings: prostatic urethra -trilobar enlargement, bulbous urethra WNL, no suspicious bladder lesions visualized [id number] DISPOSABLE SCOPE URO-G FLEXIBLE SCOPE Procedure code (CPT) selection complete Office Meds lidocaine HCl 2 % mucosal jelly in applicator Performing Provider: Cristian Benitez MD Performing Location: [facility] Administered by: Alexandr Mcbride LPN on 12/15/23 11:34 Dose Route Admin Location Dispensed Lot Number Expiration Date ND Wind Farm Support Specialist 10 mL intra-urethral 20 mL naproxen 500 mg tablet Performing Provider: Cristian Benitez MD Performing Location: [facility] Administered by: Alexandr Mcbride LPN on 12/15/23 11:34 Dose Route Admin Location Dispensed Lot Number Expiration Date ND Wind Farm Support Specialist 500 mg PO 1 tab ciprofloxacin HCl 500 mg tablet Performing Provider: Cristian Benitez MD Performing Location: [facility] Administered by: Alexandr Mcbride LPN on 12/15/23 11:34 Dose Route Admin Location Dispensed Lot Number Expiration Date ND [employer] Farm Support Specialist 500 mg PO 1 tab Results AMB Urinalysis, Automated UA Leukoctes 0 Pj/uL Last Edit by GARRET Sanford on 12/15/23 11:33 UA Nitrite Negative Last Edit by GARRET Sanford on 12/15/23 11:33 UA Urobilinogen 0.2 mg/dL Last Edit by GARRET Sanford on 12/15/23 11:3 3 UA Protein 0 mg/dL Last Edit by GARRET Sanford on 12/15/23 11:33 UA pH 6.0 Last Edit by GARRET Sanford on 12/15/23 11:33 UA Blood 0 Reggie/uL Last Edit by GARRET Sanford on 12/15/23 11:33 UA Specific [place] 1.010 Last Edit by GARRET Sanford on 12/15/23 11: 33 UA Ketone Negative Last Edit by GARRET Sanford on 12/15/23 11:33 UA Bilirubin 0 mg/dL Last Edit by GARRET Sanford on 12/15/23 11:33 UA Glucose 1000 mg/dL Last Edit by GARRET Sanford on 12/15/23 11:33 3+ Letha Ron 12/15/23 11:33 Results Reviewed Results Reviewed: Laboratory Last Values Urine pH (Auto) 6.0 12/15/23 11:32 Specific [place] (Auto) 1.010 12/15/23 11:32 Urine Protein (Auto) 0 mg/dL 12/15/23 11:32 Glucose (UA)(Auto) 1000 mg/dL 12/15/23 11:32 Urine Ketones (Auto) Negative 12/15/23 11:32 Urine Blood (Auto) 0 Reggie/uL 12/15/23 11:32 Urine Nitrite (Auto) Negative 12/15/23 11:32 Urine Bilirubin (Auto) 0 mg/dL 12/15/23 11:32 Urine Urobilinogen (Auto) 0.2 mg/dL 12/15/23 11:32 Leukocyte Esterase (Auto) 0 Pj/uL 12/15/23 11:32 Assessment & Plan Assessment & Plan (1) BPH loc w urin obs/LUTS: Code(s): N40.1 - Benign prostatic hyperplasia with lower urinary tract symptoms Category: Medical (2) Weak urinary stream: Code(s): R39.12 - Poor urinary stream Category: Medical (3) Nocturia: Code(s): R35.1 - Nocturia Category: Medical (4) Diabetes: Comment: NIDDM Code(s): E11.9 - Type 2 diabetes mellitus without complications Category: Medical (5) Erectile dysfunction: Code(s): N52.9 - Male erectile dysfunction, unspecified Category: Medical Plan Plan-Viagra p.r.n., continue tamsulosin and Proscar, renal ultrasound ordered as long as normal will have nurses review results with patient. Otherwise follow- up in 6 months Orders: Orders AMB Cystoscopy 12/15/23 R35.1 - Nocturia, R39.12 - Poor urinary stream, N40.1 - Benign prostatic hyperplasia with lower urinary tract symptoms AMB Urinalysis Automated 12/15/23 Z13.9 - Encounter for screening, unspecified Patient Instructions: The patient had an opportunity to ask questions regarding treatment plan. All questions were answered. Laboratory studies and physical exam results were discussed and reviewed in detail. No major barriers to understanding were identified. The patient expressed understanding and agreement with the above treatment plan. The patient is aware they should contact our office by phone for worsening of their current condition or the appearance of new symptoms. Compliance is encouraged with any medications and followup testing that is ordered. It is a privilege to be allowed the opportunity to participate in the urologic care of your patient. If you have any questions or concerns regarding treatment for the above conditions please do not hesitate to contact me. The office telephone contact is [phone]. This note is constructed in part using voice recognition software. While every effort has been made to ensure accuracy product management manager errors may have been included. Yours sincerely, Cristian Benitez MD Coding Level of Care Code Est Pt Level 4 (31377) Diagnoses BPH loc w urin obs/LUTS N40.1 Weak urinary stream R39.12 Nocturia R35.1 Diabetes E11.9 Erectile dysfunction N52.9 CPT Codes Cystoscopy - CPT: 75619-[id number] ([id number])
== END 2023-12-15 11:58 | disposition home or self-care (01) ==
PROVIDERS: PCP Internal Medicine; Referring Provider Internal Medicine; Visit Provider Urology
DX: N40.1 Benign prostatic hyperplasia with lower urinary tract symptoms (principal); R39.12 Poor urinary stream; R35.1 Nocturia; E11.9 Type 2 diabetes mellitus without complications; N52.9 Male erectile dysfunction, unspecified
CPT/HCPCS: 52000; 99214

== ENCOUNTER → 2023-12-15 09:58 | Outpatient (BNVA) | payer MEDICAID, SELFPAY | PROVIDERS: PCP Internal Medicine; Visit Provider Urology | DX: N40.1 Benign prostatic hyperplasia with lower urinary tract symptoms (principal); R39.15 Urgency of urination; R35.1 Nocturia; E11.9 Type 2 diabetes mellitus without complications; N52.9 Male erectile dysfunction, unspecified | CPT/HCPCS: 52000; 81003; 99212 ==

== ENCOUNTER → 2023-12-30 09:45 | Day surgery (SDC) | payer MEDICAID, SELFPAY ==
[2023-12-30 10:30] LABS: Glucose, Whole Blood 124 mg/dL (60-115)
--- NOTE | 2023-12-30 11:14 | PC.NURSE ---
Patient took his Jardiance yesterday. Daughter was present when anesthesia and dr. riley updated present due to reason for being cancelled today. Aware to resume medications and to f/u to re-schedule. No IV was placed. patient left with all belongings.
--- NOTE | 2023-12-30 11:51 | HO.ANESEVENT ---
Anesthesia Event Note Date of Service: 12/30/23 Event Note: pt took jardiance, plus inadequate prep. case cancelled. Time Spent With Patient Time: Total time managing care of this patient today ____ minutes.
== END ==
PROVIDERS: PCP Internal Medicine; Visit Provider Internal Medicine
DX: Z12.11 Encounter for screening for malignant neoplasm of colon (principal); Z53.8 Procedure and treatment not carried out for other reasons; Z86.010 Personal history of colon polyps; E11.9 Type 2 diabetes mellitus without complications; Z79.84 Long term (current) use of oral hypoglycemic drugs
CPT/HCPCS: 82947; 99499

== ENCOUNTER 2024-03-07 08:23 | Outpatient (REF) | payer MEDICAID, SELFPAY ==
[2024-03-07 09:00] LABS: Estimated Average Glucose 160 mg/dL; Hemoglobin A1c % 7.2 % (<6.0)
[2024-03-07 09:34] LABS: Alanine Aminotransferase 24 U/L (0-40); Albumin Level 4.2 g/dL (3.5-5.0); Alkaline Phosphatase 94 U/L (39-117); Anion Gap 13 (12-20); Aspartate Amino Transferase 21 U/L (5-37); Bilirubin Total 0.4 mg/dL (0.0-1.0); Blood Urea Nitrogen 21 mg/dL (9-16); Calcium 9.1 mg/dL (8.4-10.2); Carbon Dioxide 26 mmol/L (22-29); Chloride 106 mmol/L (96-108); Cholesterol 222 mg/dL (<200); Estimated Glomerular Filt Rate > 60; Glucose Random 133 mg/dL (60-115); HDL Cholesterol 39 mg/dL (>40); LDL Cholesterol Calculated 155 mg/dL (<100); Potassium 4.2 mmol/L (3.3-5.1); Sodium 141 mmol/L (135-145); Triglycerides 144 mg/dL (<150)
[2024-03-09 23:47] LABS: TS Negative Control Passed; TS Panel A 2; TS Panel B 0; TS Positive Control Passed; TSpotTB Negative (Negative)
== END 2024-03-07 08:24 | disposition home or self-care (01) ==
LOC: HO.LAB 08:23
PROVIDERS: PCP Internal Medicine; Visit Provider Internal Medicine
DX: E11.65 Type 2 diabetes mellitus with hyperglycemia (principal); E78.00 Pure hypercholesterolemia, unspecified; I10 Essential (primary) hypertension; N40.0 Benign prostatic hyperplasia without lower urinary tract symptoms
CPT/HCPCS: 36415; 80053; 80061; 83036; 86481

== ENCOUNTER 2024-03-30 10:26 | Day surgery (SDC) | payer MEDICAID, SELFPAY ==
[2024-03-28 15:03] VITALS: BMI 28.4
--- NOTE | 2024-03-29 12:59 | HO.ANESPROP2 ---
Documented by User: Stefani Plummer NP 03/29/24 13:00 HPI - Anesthesia Eval Consult details Narrative: 63yo M for Colonoscopy PMFSH Active Problems Active Problems: All Active Problems Erectile dysfunction (Acute) Diabetes (Acute) Nocturia (Acute) Weak urinary stream (Acute) BPH loc w urin obs/LUTS (Acute) Past Medical History Medical History HTN (hypertension) Diabetes Surgical History Surgical History H/O colonoscopy Social History Social History Alcohol intake: never Patient Tobacco Use Status: Never used Tobacco Use of substances other than those prescribed or required for medical reasons: No Have you been hit, kicked, punched, or otherwise hurt by someone within the past year? If so, by whom?: No Are you DNR?: No Advance Directives: No Advance Directives Information Provided: Yes Advance Directives on File: No Recently lost weight without trying: No Eating poorly because of decreased appetite: No Nutrition Risks: No Nutritional Risk Meds Allergies Allergy/AdvReac Type Severity Reaction Status Date / Time No Known Allergies Allergy Verified 12/30/23 10:10 Home Medications ?Medication ?Instructions ?Recorded ?Confirmed ?Last Taken ?Type aspirin 81 mg tablet,delayed 81 mg PO DAILY 09/26/23 03/28/24 12/26/23 History release lisinopril 5 mg tablet 5 mg PO DAILY 09/26/23 03/30/24 Unknown History metformin 1,000 mg tablet 1,000 mg PO BID 09/26/23 03/30/24 03/26/24 History finasteride 5 mg tablet 5 mg PO DAILY 11/03/23 03/30/24 Unknown History tamsulosin 0.4 mg capsule 0.4 mg PO DAILY 11/03/23 03/30/24 Unknown History glipizide 5 mg tablet, extended 5 mg PO DAILY 03/28/24 03/30/24 03/26/24 History release 24 hr empagliflozin 25 mg tablet 25 mg PO QAM 03/30/24 03/30/24 03/26/24 History (Jardiance) Exam Height,Weight and Vital Signs: Height 5 ft 11 in Weight 92.533 kg Pertinent Lab Results Pertinent Lab Results: Laboratory Tests 03/07/24 08:42 Sodium 141 Potassium 4.2 Chloride 106 Carbon Dioxide 26 BUN 21 H Creatinine 0.97 Assessment and Plan Assessment Anesthesia Assessment: Chart Reviewed Documented by User: Farrah Reyes MD 03/30/24 11:16 PMFSH Past Medical History Medical History HTN (hypertension) Diabetes Family History Family history of problems with anesthesia: No Surgical History Surgical History H/O colonoscopy History of Problems with Anesthesia: No Social History Social History Alcohol intake: never Patient Tobacco Use Status: Never used Tobacco Use of substances other than those prescribed or required for medical reasons: No Have you been hit, kicked, punched, or otherwise hurt by someone within the past year? If so, by whom?: No Are you DNR?: No Advance Directives: No Advance Directives Information Provided: Yes Advance Directives on File: No Recently lost weight without trying: No Eating poorly because of decreased appetite: No Nutrition Risks: No Nutritional Risk Meds Allergies Allergy/AdvReac Type Severity Reaction Status Date / Time No Known Allergies Allergy Verified 12/30/23 10:10 Home Medications ?Medication ?Instructions ?Recorded ?Confirmed ?Last Taken ?Type aspirin 81 mg tablet,delayed 81 mg PO DAILY 09/26/23 03/28/24 12/26/23 History release lisinopril 5 mg tablet 5 mg PO DAILY 09/26/23 03/30/24 Unknown History metformin 1,000 mg tablet 1,000 mg PO BID 09/26/23 03/30/24 03/26/24 History finasteride 5 mg tablet 5 mg PO DAILY 11/03/23 03/30/24 Unknown History tamsulosin 0.4 mg capsule 0.4 mg PO DAILY 11/03/23 03/30/24 Unknown History glipizide 5 mg tablet, extended 5 mg PO DAILY 03/28/24 03/30/24 03/26/24 History release 24 hr empagliflozin 25 mg tablet 25 mg PO QAM 03/30/24 03/30/24 03/26/24 History (Jardiance) Exam Airway Mallampati Class: III TM Dist: >3cm Neck ROM: Full Assessment and Plan Assessment Anesthesia Assessment: Anesthesia Plan Discussed Final Anesthetic Review Family History of Problems with Anesthesia: No History of Problems with Anesthesia: No NPO: Yes ASA Class: III Final Preanesthetic Review: No Changes in Pt Med Stat, Meds/Allgs Chart Reviewed, Consent Obtained/Reviewed and Anes Risks/Benef Reviewed Patient Risk: Intermediate Procedure Risk: Low Anesthetic Plan Anesthetic Plan: TIVA Disposition: Standard PACU
[2024-03-30 11:15] VITALS: BP 144/78; PULSE 48; RESP 16; TEMP 36.2; O2SAT 97; BMI 28.7
[2024-03-30 11:37] LABS: Glucose, Whole Blood 139 mg/dL (60-115)
[2024-03-30] MEDS: Lactated Ringers 1,000 ML 100 ML IVCONT (11:37)
--- NOTE | 2024-03-30 11:40 | PC.NURSE ---
24hr update documented on paper
--- NOTE | 2024-03-30 13:30 | P.BOP_ITS ---
Brief Operative Note Date of Service: 03/30/24 Pre-op diagnosis: Screening Post-op diagnosis: other (Colon polyps) Procedure: Colonoscopy to the cecum and TI with cold snare polypectomy x 2 Surgeon: Ceasar Barnes MD Anesthesia: MAC Was an Mixed Animal Veterinarian used for this Procedure?: No Estimated blood loss (mL): 2.0 Pathology: other (A. Transverse colon polyp B. Polyp at 15cm) Condition: stable Disposition: PACU
[2024-03-30 13:32] VITALS: BP 126/55; PULSE 56; RESP 16; TEMP 36.8; O2SAT 96
[2024-03-30 13:47] VITALS: BP 135/69; PULSE 54; RESP 18; TEMP 36.1; O2SAT 99
--- NOTE | 2024-03-30 14:25 | PC.NURSE ---
All discharge instructions completed by Ekta Obregon RN.
--- NOTE | 2024-03-31 01:13 | OP_ITS ---
DATE OF SERVICE: 03/30/2024 SURGEON: Ceasar Barnes MD INDICATIONS: The patient presents for evaluation of personal history of colon polyps and colorectal cancer screening. Full consent has been obtained from him for this, including risks of bleeding and perforation. PREOPERATIVE DIAGNOSIS: POSTOPERATIVE DIAGNOSIS: PROCEDURE PERFORMED: Colonoscopy to the cecum and terminal ileum with cold snare polypectomy x2. ESTIMATED BLOOD LOSS: COMPLICATIONS: ANESTHESIA: Monitored anesthesia care. ASSISTANTS: SPECIMENS: PREOPERATIVE DIAGNOSES: Colorectal cancer screening and personal history of colon polyps. POSTOPERATIVE DIAGNOSES: Colorectal cancer screening and personal history of colon polyps, colon polyps, diverticulosis, and internal hemorrhoids. DESCRIPTION OF PROCEDURE: The patient was placed in the left lateral decubitus position. The digital rectal exam revealed no abnormalities. The Olympus video pediatric colonoscope was entered into the rectum and advanced easily to the cecum. Once in the cecum, I did identify normal-appearing cecal pouch with appendiceal orifice and a normal-appearing ileocecal valve. The terminal ileum was cannulated and appeared normal. The scope was slowly withdrawn back in the colon. The entire cecum and ileocecal valve appeared normal. The scope was then slowly withdrawn assessing all mucosal surfaces carefully. Preparation was excellent. In the transverse colon, there was an approximately 6 mm polyp, which was removed by cold snare polypectomy, recovered by suction. The polypectomy site appeared clean, without any sign of residual polyp nor any significant bleeding. At 15 cm, was a flat approximately 5 mm polyp, which was removed by cold snare polypectomy. A specimen was recovered, although I was not positive it was actually tissue, but it was sent for analysis. The polypectomy site appeared to be clean, without any sign of residual polyp nor any significant bleeding. I did not visualize any other polyps, colitis, nor angiodysplasia. There was a mild amount of sigmoid diverticulosis. In the rectum, scope was retroflexed, visualizing internal hemorrhoids, but no other pathology. The rectal mucosa appeared normal. Scope was straightened and withdrawn from the patient. He tolerated the procedure well and was returned to recovery area in stable condition. IMPRESSION: 1. Colon polyps. 2. Diverticulosis. 3. Internal hemorrhoids. PLAN: The results of the biopsies will be checked. I would recommend a repeat colonoscopy in 5 years. He was advised to resume his normal diabetes medication regimen today. He was advised not to use any aspirin nor NSAIDs for 1 week. He will otherwise see me on a p.r.n. basis. MD MELA Mercedes/DENG / [id number]
== END 2024-03-30 14:08 | disposition home or self-care (01) ==
PROVIDERS: PCP Internal Medicine; Visit Provider Internal Medicine
PROC: 0DJD8ZZ Inspection of Lower Intestinal Tract, Via Natural or Artificial Opening Endoscopic (ICD-10-PCS; CPT 45378; principal; 2024-03-30 12:10)
DX: Z12.11 Encounter for screening for malignant neoplasm of colon (principal); Z86.010 Personal history of colon polyps; D12.3 Benign neoplasm of transverse colon; K63.5 Polyp of colon; K57.30 Diverticulosis of large intestine without perforation or abscess without bleeding; K64.8 Other hemorrhoids; I10 Essential (primary) hypertension; E11.9 Type 2 diabetes mellitus without complications; Z79.84 Long term (current) use of oral hypoglycemic drugs; Z79.82 Long term (current) use of aspirin
CPT/HCPCS: 45385; 82947; 88305

== ENCOUNTER 2024-07-25 09:43 | Outpatient (REF) | payer MEDICAID, SELFPAY | END 2024-07-25 09:44 | disposition home or self-care (01) | LOC: HO.US 09:43 | PROVIDERS: PCP Internal Medicine; Visit Provider Urology | DX: N40.1 Benign prostatic hyperplasia with lower urinary tract symptoms (principal); R39.12 Poor urinary stream | CPT/HCPCS: 76770 ==

== ENCOUNTER 2024-08-03 10:24 | Outpatient (AMB) | payer MEDICAID, SELFPAY ==
--- NOTE | 2024-08-03 02:33 | A.OFFVIS_ITS ---
Intake Visit Reasons: 6m/US Intake Note: Patient is present for 6M/US Urology Medication:SILDENAFIL,TAMSULOSIN,FINASTERIDE Antibiotic Allergy:NONE Blood Thinner:ASPIRIN Supervisor [employer] Can Supply Required: No Allergies No Known Allergies Allergy (Verified 08/03/24 10:56) Medication List - Last Reconciled 08/03/24 by Cristian Benitez MD aspirin 81 mg PO DAILY empagliflozin (Jardiance) 25 mg PO QAM finasteride 5 mg PO DAILY glipizide ER 5 mg PO DAILY lisinopril 5 mg PO DAILY metformin 1,000 mg PO BID sildenafil 100 mg PO DAILY PRN tamsulosin (Flomax) 0.4 mg PO BID HPI Comments Details: 08/03/24--6 month FU. He states he is using the tamsulosin twice a day and the Proscar twice a day. I have explained that I only want him to use the Proscar once a day. Discussed renal ultrasound results. Refill on generic Viagra p.r.n.. renal US --07/25/24---Kidneys within normal limits. estimated prostate volume- 26.2 mL, Bladder PVR-60.7 mL Review of chart: 12/15/2023--Drake is here for office cystoscopy. Had PSA 12/05/23----0.23ng/mL. Did not have renal ultrasound done. Rescheduled. Cystoscopy findings: prostatic urethra -trilobar enlargement, bulbous urethra WNL, no suspicious bladder lesions visualized. The Patient complains of decrease in rigidity every erections. Discussed Viagra versus Cialis will try Viagra 100 mg half a tab to 1 tab 30 minutes to 1 hour prior sexual activity. Discussed treatment options for enlarged prostate to include GreenLight laser, TURP. Patient wants to continue meds for now. Discussed getting renal ultrasound completed. Plan-Viagra p.r.n., continue tamsulosin and Proscar, renal ultrasound ordered as long as normal will have nurses review results with patient. Otherwise follow- up in 6 months 11/03/2023--62-year-old male with complaints hesitancy and decreased force of stream States he has been on prostate medication for over a year. The patient is on finasteride 5 mg daily and tamsulosin 0.4 mg daily Review of consult referral notes PSA 05/26/2022--0.12 Comorbidity diabetes Bladder scan PVR today was 21 mL. Prostate exam mild to moderately enlarged, smooth plan--discussed Ultrasound retroperitoneum, PSA, I want him to increase the tamsulosin to twice a day and continue with the Proscar daily. Follow-up office cystoscopy. [facility] Medical History HTN (hypertension) Diabetes Surgical History H/O colonoscopy Social History Alcohol intake: never Patient Tobacco Use Status: Never used Tobacco Review of Systems Const All systems reviewed & are unremarkable except as noted in HPI and below Reports no additional complaints Eyes Reports no additional complaints ENT Reports no additional complaints Card Reports no additional complaints Resp Reports no additional complaints GI Reports no additional complaints Reports as per HPI Musc Reports no additional complaints Skin/Breast Reports system reviewed and no additional complaints, except as documented Neuro Reports no additional complaints Psych Reports no additional complaints Endo Reports no additional complaints Db/Lymph Reports no additional complaints Aller/Immun Reports no additional complaints Results AMB Urinalysis, Automated UA Leukoctes 0 Pj/uL Last Edit by STEVIE Zabala on 08/03/24 11:06 UA Nitrite Last Edit by STEVIE Zabala on 08/03/24 11:06 UA Urobilinogen 0.2 mg/dL Last Edit by STEVIE Zabala on 08/03/24 11:0 6 UA Protein 0 mg/dL Last Edit by STEVIE Zabala on 08/03/24 11:06 UA pH 6.0 Last Edit by STEVIE Zabala on 08/03/24 11:06 UA Blood 0 Reggie/uL Last Edit by STEVIE Zabala on 08/03/24 11:06 UA Specific Tiller 1.015 Last Edit by STEVIE Zabala on 08/03/24 11: 06 UA Ketone Negative Last Edit by STEVIE Zabala on 08/03/24 11:06 UA Bilirubin 0 mg/dL Last Edit by STEVIE Zabala on 08/03/24 11:06 UA Glucose 1000 mg/dL Last Edit by STEVIE Zabala on 08/03/24 11:06 Results Reviewed Results Reviewed: Laboratory Last Values Urine pH (Auto) 6.0 08/03/24 11:05 Specific Tiller (Auto) 1.015 08/03/24 11:05 Urine Protein (Auto) 0 mg/dL 08/03/24 11:05 Glucose (UA)(Auto) 1000 mg/dL 08/03/24 11:05 Urine Ketones (Auto) Negative 08/03/24 11:05 Urine Blood (Auto) 0 Reggie/uL 08/03/24 11:05 Urine Bilirubin (Auto) 0 mg/dL 08/03/24 11:05 Urine Urobilinogen (Auto) 0.2 mg/dL 08/03/24 11:05 Leukocyte Esterase (Auto) 0 Pj/uL 08/03/24 11:05 Assessment & Plan Assessment & Plan (1) BPH loc w urin obs/LUTS: Code(s): N40.1 - Benign prostatic hyperplasia with lower urinary tract symptoms Category: Medical (2) Weak urinary stream: Code(s): R39.12 - Poor urinary stream Category: Medical (3) Nocturia: Code(s): R35.1 - Nocturia Category: Medical (4) Diabetes: Comment: NIDDM Code(s): E11.9 - Type 2 diabetes mellitus without complications Category: Medical (5) Erectile dysfunction: Code(s): N52.9 - Male erectile dysfunction, unspecified Category: Medical (6) Screening PSA (prostate specific antigen): Code(s): Z12.5 - Encounter for screening for malignant neoplasm of prostate Category: Medical Plan Plan-Viagra p.r.n., tamsulosin bid and Proscar, FU one year PSA prior Orders: Orders PSA,Total (Free>4and<10) Today N40.1 - Benign prostatic hyperplasia with lower urinary tract symptoms, Z12.5 - Encounter for screening for malignant neoplasm of prostate AMB Urinalysis Automated Today Z13.9 - Encounter for screening, unspecified Medications: New tamsulosin (Flomax) 0.4 mg PO BID 180 caps 3RF Changed From sildenafil administer 30 minutes to 4 hours before activity USE COUPON ATTAHCED NOT INSURANCE 100 mg PO DAILY PRN 30 tabs 2RF sexual activity To sildenafil administer 30 minutes to 4 hours before activity [id number] [facility] [id number] Member [id number] USE COUPON ATTAHCED NOT INSURANCE 100 mg PO DAILY PRN 30 tabs 3RF sexual activity Patient Instructions: The patient had an opportunity to ask questions regarding treatment plan. The patient expressed understanding and agreement with the above treatment plan. The patient is aware they should contact our office by phone for worsening of their current condition or the appearance of new symptoms. Compliance is encouraged with any medications and followup testing that is ordered. It is a privilege to be allowed the opportunity to participate in the urologic care of your patient. If you have any questions or concerns regarding treatment for the above conditions please do not hesitate to contact me. The office telephone contact is [phone]. This note is constructed in part using voice recognition software. While every effort has been made to ensure accuracy scuba diving instructor errors may have been included. Yours sincerely, Cristian Benitez MD Coding Level of Care Code Est Pt Level 4 (15560) Diagnoses BPH loc w urin obs/LUTS N40.1 Weak urinary stream R39.12 Nocturia R35.1 Diabetes E11.9 Erectile dysfunction N52.9 Screening PSA (prostate specific antigen) Z12.5
== END 2024-08-03 14:19 | disposition home or self-care (01) ==
PROVIDERS: PCP Internal Medicine; Visit Provider Urology
DX: N40.1 Benign prostatic hyperplasia with lower urinary tract symptoms (principal); R39.12 Poor urinary stream; R35.1 Nocturia; E11.9 Type 2 diabetes mellitus without complications; N52.9 Male erectile dysfunction, unspecified; Z12.5 Encounter for screening for malignant neoplasm of prostate; Z13.9 Encounter for screening, unspecified
CPT/HCPCS: 99214

== ENCOUNTER → 2024-08-03 10:24 | Outpatient (BNVA) | payer MEDICAID, SELFPAY | PROVIDERS: PCP Internal Medicine; Visit Provider Urology | DX: N40.1 Benign prostatic hyperplasia with lower urinary tract symptoms (principal); N13.8 Other obstructive and reflux uropathy; R39.12 Poor urinary stream; R35.1 Nocturia; E11.69 Type 2 diabetes mellitus with other specified complication; N52.1 Erectile dysfunction due to diseases classified elsewhere; Z12.5 Encounter for screening for malignant neoplasm of prostate | CPT/HCPCS: 81003; 99212 ==

== ENCOUNTER 2024-10-11 06:21 | Emergency (ER) | payer MEDICAID, SELFPAY ==
[2024-10-11 06:35] VITALS: BP 146/69; PULSE 51; RESP 16; TEMP 36.7; O2SAT 98; BMI 28.3
--- NOTE | 2024-10-11 06:50 | ED_ITS ---
HPI - General Adult General Chief complaint: Skin/Abscess/Foreign Body Stated complaint: Rash Time Seen by Provider: 10/11/24 06:44 Source: patient Mode of arrival: ambulatory Limitations: no limitations History of Present Illness ED Provider: Angeles Norris PA-C HPI narrative: Patient is a 63 year old assigned male at with a history of BPH, HTN, and DM presenting to the emergency department today with a left chest wall rash. Patient states that over the last few days he has noticed a left chest rash that is painful and itchy. Patient denies any dizziness, lightheadedness, abdominal pain, nausea, vomiting, fever, chills, blurry vision, double vision, loss of vision, chest pain, difficulty breathing, shortness of breath, back pain, night sweats, pain with urination, increased urinary frequency, increased urinary urgency, blood in his urine or stool, syncope or a near syncopal episode, recent trauma or falls, bowel incontinence, bladder incontinence, or any other complaints at this time. Onset (ago): day(s) Relieving factors: none Exacerbating factors: none Associated symptoms: rash Treatments prior to arrival: none Related Data Home Medications ?Medication ?Instructions ?Recorded ?Confirmed aspirin 81 mg tablet,delayed 81 mg PO DAILY 09/26/23 08/03/24 release lisinopril 5 mg tablet 5 mg PO DAILY 09/26/23 08/03/24 metformin 1,000 mg tablet 1,000 mg PO BID 09/26/23 08/03/24 finasteride 5 mg tablet 5 mg PO DAILY 11/03/23 08/03/24 glipizide 5 mg tablet, extended 5 mg PO DAILY 03/28/24 08/03/24 release 24 hr empagliflozin 25 mg tablet 25 mg PO QAM 03/30/24 08/03/24 (Jardiance) Previous Rx's ?Medication ?Instructions ?Recorded sildenafil 100 mg tablet 100 mg PO DAILY PRN sexual 08/03/24 activity #30 tabs tamsulosin 0.4 mg capsule (Flomax) 0.4 mg PO BID #180 caps 08/03/24 prednisone 20 mg tablet 20 mg PO DAILY 7 days #7 tabs 10/11/24 valacyclovir 1 gram tablet 1,000 mg PO TID 7 days #21 tabs 10/11/24 Allergies Allergy/AdvReac Type Severity Reaction Status Date / Time No Known Allergies Allergy Verified 10/11/24 06:37 Review of Systems 2 Constitutional: Constitutional: Reports no additional constitutional complaints, Denies chills, Denies fever(s) and Denies night sweats Eyes: Eyes: Reports no additional eye complaints, Denies blurry vision, Denies change in vision, Denies diplopia, Denies eye discharge, Denies loss of vision and Denies eye pain ENT: Denies dizziness Cardiovascular: Cardiovascular: Reports no additional cardiovascular complaints, Denies chest pain, Denies lightheadedness, Denies Loss of Consciousness and Denies dyspnea Respiratory: Respiratory: Reports no additional respiratory complaints and Denies dyspnea Gastrointestinal: Gastrointestinal: Reports no additional gastrointestinal complaints, Denies abdominal pain, Denies melena, Denies hematochezia, Denies change in bowel habits and Denies change in stool character Genitourinary: Genitourinary: Reports no additional male genitourinary complaints, Denies hematuria, Denies oliguria, Denies difficulty urinating, Denies dysuria, Denies urinary frequency, Denies urinary hesitancy, Denies urinary incontinence and Denies urinary urgency Musculoskeletal: Musculoskeletal: Reports no additional musculoskeletal complaints, Denies numbness and Denies tingling Integumentary/Breasts: Comments: left chest wall rash Neurologic: Denies dizziness, Denies loss of vision, Denies numbness and Denies tingling Psychiatric: Psychiatric: Reports no additional psychiatric complaints Endocrine: Endocrine: Reports no additional endocrine complaints Hematologic/Lymphatic: Hematologic/Lymphatic: Reports no additional hematologic/lymphatic complaints Allergic/Immunologic: Allergic/Immunologic: Reports no additional allergic/immunologic complaints [facility] Past Medical History Attestation statement: The following information was validated with the patient. Source: old records reviewed and nursing notes reviewed Medical History HTN (hypertension) Diabetes Surgical History H/O colonoscopy Social History Social History Alcohol intake: never Patient Tobacco Use Status: Never used Tobacco Advance Directives: No Advance Directives Information Provided: No Do you have a plan to hurt others: No Plan Physical Exam ED Vital Signs: Vital Signs - 24 hr 10/11/24 06:35 Temperature 98.0 F Pulse Rate 51 Respiratory Rate 16 Blood Pressure 146/69 H Pulse Oximetry 98 Oxygen Delivery Method Room Air BMI result Body Mass Index 28.3 Const General: cooperative, no acute distress, alert and awake Nutritional Appearance: well nourished Orientation/consciousness: patient oriented x3 Limitations: no limitations HENMT Head: Yes normal to inspection and Yes atraumatic Ears: hearing grossly normal bilaterally and external ears normal General nose exam: Normal external nose present, no nasal discharge noted and no epistaxis Face and sinus: Yes normal facial exam, No abrasion and No laceration Mouth: Normal oral and palatal mucosa present, no drooling and no muffled voice Eyes General: appearance normal, both eyes and all related structures Periorbital: periorbital findings normal Eyelids: Yes eyelids normal Conjunctivae: conjunctivae normal Pupils: Equal, round and reactive pupils present EOM: EOMs intact bilaterally Neck Neck: Yes normal visual inspection, Yes full ROM and Yes no lymphadenopathy Chest Chest/axillae images: 2 1. Herpetic lesions present - consistent with shingles Resp Effort & Inspection: normal respiratory effort and able to speak in complete sentences GI Inspection: Yes normal to inspection Neuro General: patient oriented x3 and moves all extremities Cranial nerves: Yes Equal, round and reactive pupils present Cognition (Neuro): normal cognition Extrem General: Yes normal to inspection, Yes full ROM and Yes capillary refill normal Psych Appearance: grossly normal Mental Status: mental status grossly normal Affect: normal affect Attitude: cooperative Thought process: Normal thought process present Thought content: Normal thought content present Insight: Good insight present (Psych) Medical Decision Making Medical Decision Making MDM Narrative: Patient is a 63 year old assigned male at with a history of BPH, HTN, and DM presenting to the emergency department today with a left chest wall rash. Patient's physical exam was as noted in the physical exam portion of this note and most consistent with shingles. I explained my physical exam findings to the patient. I answered all questions asked by the patient. I stressed the importance of the patient taking his medication as directed (either prescribed or as the over the counter packaging recommends). I stressed the importance of the patient following up with his primary care provider. I stressed the importance of the patient returning to the emergency department immediately if his symptoms were to worsen or if he were to develop any dizziness, shortness of breath, difficulty breathing, chest pain, blurry vision, loss of vision, nausea, vomiting, abdominal pain, fever, chills, back pain, or any other complaints. Patient verbalized agreement and understanding with this treatment plan and discharge. Differential Diagnosis Differential Diagnoses: The differential diagnosis associated with the presentation includes Shingles Admission/Observation Consideration of admission/observation: Escalation of care including admission/observation considered Patient would have been admitted to the hospital had his clinical presentation warranted hospital admission. Prescription Management I considered prescription management with: Antiviral (patient prescribed an antiviral for shingles) Chronic Conditions Patient?s care impacted by: Diabetes and Hypertension Discharge Plan Discharge Clinical Impression: Shingles rash Patient Disposition: Home, Self-Care Instructions: Shingles (ED) Additional Instructions: Follow up with your primary care provider. Return to the emergency department immediately if your symptoms worsen or if you develop any dizziness, shortness of breath, difficulty breathing, chest pain, blurry vision, loss of vision, nausea, vomiting, abdominal pain, fever, chills, back pain, or any other complaints. Prescriptions: New valacyclovir 1 gram tablet 1,000 mg PO TID 7 Days Qty: 21 0RF prednisone 20 mg tablet 20 mg PO DAILY 7 Days Qty: 7 0RF No Action aspirin 81 mg tablet,delayed release (DR/EC) 81 mg PO DAILY metformin 1,000 mg tablet 1,000 mg PO BID lisinopril 5 mg tablet 5 mg PO DAILY glipizide 5 mg tablet extended release 24hr 5 mg PO DAILY Jardiance 25 mg tablet 25 mg PO QAM finasteride 5 mg tablet 5 mg PO DAILY tamsulosin [Flomax] 0.4 mg capsule 0.4 mg PO BID Qty: 180 3RF sildenafil 100 mg tablet 100 mg PO DAILY PRN (Reason: sexual activity) Qty: 30 3RF Rx Instructions: administer 30 minutes to 4 hours before activity [id number] [facility] [id number] Member [id number] USE COUPON ATTAHCED NOT INSURANCE Referrals: Maia Joyce MD [Primary Care Provider] - Print Language: Vietnamese
[2024-10-11 08:02] VITALS: BP 138/60; PULSE 60; RESP 16; TEMP 36.7; O2SAT 98
[2024-10-11 08:10] VITALS: BP 136/62; PULSE 58; RESP 18; TEMP 36.7; O2SAT 97
--- OUTSIDE RECORDS SUMMARY | 2024-10-11 10:31 | XMS_ITS ---
Author Organization [facility] Address [address] [place] [address] Care Team Providers Care Binder Selector Name Role Phone Maia Joyce Primary Care Provider Unavailab Ceasar Davis Unavailable [phone] REASON FOR VISIT colon prep and which meds to hold MEDICATIONS Medication SIG (Take, Route, Frequency, Duration) Notes Start Date End Date Status Dulcolax (colon prep) 5 MG Take 2 tablet s 2 days before the colonoscopy, and take 2 at 3:00 p.m and 2 at 7:00p.m. the day before the colonoscopy Orally 2 tablets 2 days before the colonoscopy, and two tablets twice a day for the day before the colonoscopy for 2 days 03/15/2024 Active MiraLax (colon prep) 17 GM/SCOOP 1/2 of a 238Gm bottle mixed with 1 quart of Gatorade or Crystal light 2 days before the colonoscopy, and then 1 238Gm bottle mixed with 2 quarts of Gatorade or Crystal Light Orally Do the 1/2 bottle 2 days before the colonoscopy, and then begin the full bottle at 5:00 p.m. the day before the procedure for 2 days 03/15/2024 Active Encounters Encounter Location Date Provider Diagnosis [facility] [address] [place] [address] 02/01/2024 Ceasar Barnes PLAN OF TREATMENT Medication Medication Name Sig Start Date Stop Date Notes Dulcolax (colon prep) 5 MG Take 2 tablet s 2 days before the colonoscopy, and take 2 at 3:00 p.m and 2 at 7:00p.m. the day before the colonoscopy Orally 2 tablets 2 days before the colonoscopy, and two tablets twice a day for the day before the colonoscopy for 2 days 03/15/2024 MiraLax (colon prep) 17 GM/SCOOP 1/2 of a 238Gm bottle mixed with 1 quart of Gatorade or Crystal light 2 days before the colonoscopy, and then 1 238Gm bottle mixed with 2 quarts of Gatorade or Crystal Light Orally Do the 1/2 bottle 2 days before the colonoscopy, and then begin the full bottle at 5:00 p.m. the day before the procedure for 2 days 03/15/2024
--- OUTSIDE RECORDS SUMMARY | 2024-10-11 10:31 | XMS_ITS ---
Author Organization [facility] Address [address] [place] [address] Care Team Providers Care Digester Name Role Phone Maia Joyce Primary Care Provider Unavailab Ceasar Davis Unavailable [phone] PROBLEMS Problem Type ICD Code Onset Dates Problem Status W/U Status Risk SNOMED Code Notes Problem Diverticulosis of large intestine without perforation or abscess without bleeding (K57.30) Active confirmed Diverticul ar disease of colon ([id number]) Encounters Encounter Location Date Provider Diagnosis [facility] Outpatient [address], [place] [id number] 03/30/2024 Ceasar Barnes Colon cancer scree [place] Z12.11 ; Colon polyps K63.5 ; Diverticulosis of large intestine without perforation or abscess without bleeding K57.30 and Other hemorrhoids K64.8 ASSESSMENTS Encounter Date Diagnosis Assessment Notes Treatment Notes Treatment Clinical Notes 03/30/2024 Colon cancer screening (ICD-10 - Z12.11) 03/30/2024 Colon polyps (ICD-10 - K63.5) 03/30/2024 Diverticulosis of large intestine without perforation or abscess without bleeding (ICD-10 - K57.30) 03/30/2024 Other hemorrhoids (ICD-10 - K64.8) PLAN OF TREATMENT No Information
--- OUTSIDE RECORDS SUMMARY | 2024-10-11 10:31 | XMS_ITS ---
Author Organization [facility] Address [address] [place] [address] Care Team Providers Care Wind Site Manager Name Role Phone Maia Joyce Primary Care Provider Unavailab Ceasar Davis Unavailable [phone] REASON FOR VISIT See your other mullen on him please--pt rescheduled for 03-30-2024 Encounters Encounter Location Date Provider Diagnosis [facility] [address] [place] [address] 01/10/2024 Ceasar Barnes PLAN OF TREATMENT No Information
--- OUTSIDE RECORDS SUMMARY | 2024-10-11 10:31 | XMS_ITS | Patient Health Record ---
Author Organization [facility] Address [address] [place] [address] Care Team Providers Care Cosmetics Demonstrator Name Role Phone Maia Joyce Primary Care Provider Unavailab Ceasar Davis Unavailable [phone] ALLERGIES No Known Allergies RESULTS Component Value Reference Range Notes Glucose, Whole Blood Reviewed date:12/30/2023 06:18:59 PM Interpretation: Performing Lab:[facility], [address] [place] [phone] Notes/Report: Glucose, Whole Blood 124 60-115 mg/dL METER # : [id number] Glucose, Whole Blood Reviewed date:03/31/2024 06:42:02 PM Interpretation: Performing Lab:[facility], [address] [place] [phone] Notes/Report: Glucose, Whole Blood 139 60-115 mg/dL METER # : [id number] Pathology Reviewed date:04/07/2024 06:35:51 PM Interpretation: Performing Lab:[facility], [address] [place] [phone] Notes/Report: REASON FOR REFERRAL No Information MEDICATIONS Medication SIG (Take, Route, Frequency, Duration) Notes Start Date End Date Status Dulcolax (colon prep) 5 MG Take 2 tablets 2 days before the colonoscopy, and take 2 at 3:00 p.m and 2 at 7:00p.m. the day before the colonoscopy Orally 2 tablets 2 days before the colonoscopy, and two tablets twice a day for the day before the colonoscopy for 2 days 03/15/2024 Active Dulcolax (colon prep) 5 MG Take 2 pills 2 days before the colonoscopy, and then take 2 pills at 3:00 p.m and 2 pills at 7:00p.m. the day before the colonoscopy Orally 2 pills 2 days before the colonoscopy and then two tablets twice a day for one day before the colonoscopy for 2 days 10/02/2023 Active MiraLax (colon prep) 17 GM/SCOOP 1/2 of a 238GM bottle mixed with 1 quart of Gatorade, and then 1 full 238gm bottle mixed with 1/2 gallon of Gatorade(2 quarts) Gatorade or Crystal Light Orally Do the 1/2 bottle of Miralax prep two days before the colonoscopy, and then begin the full bottle of Miralax prep at 5:00 p.m. the day before the procedure for 2 days 10/02/2023 Active Tamsulosin HCl 0.4 MG 1 capsule Orally O nce a day for 30 day(s) 01/11/2024 Active Finasteride 5 MG 1 tablet Orally Once a day for 30 day(s) 01/11/2024 Active Lisinopril 10 MG 1 tablet Orally Once a day for 30 day(s) 01/11/2024 Active Jardiance 25 MG TAKE 1 TABLET BY BIANCA TH EVERY MORNING Oral for 30 Active Amitriptyline HCl 25 MG TAKE 1 TABLET BY MOUTH AT BEDTIME Oral for 90 Not-Takin g Aspirin Low Dose 81 MG TAKE 1 TABLET BY MOUTH EVERY DAY Oral for 90 Active Rosuvastatin Calcium 40 MG 1 capsule Orally Once a day for 30 day(s) 01/11/2024 Active metFORMIN HCl 1000 MG TAKE 1 TABLET BY M OUTH TWICE A DAY Oral for 90 Active glipiZIDE 5 MG 1 tablet 30 minutes before breakfast Orally Once a day for 30 day(s) 01/11/2024 Active metFORMIN HCl 1000 MG 1 tablet with a me al Orally Once a day for 30 day(s) 01/11/2024 Active Sertraline HCl 50 MG TAKE 1 TABLET BY MO UTH EVERY MORNING Oral for 90 Not-Taking MiraLax (colon prep) 17 GM/SCOOP 1/2 of [...] the procedure for 2 days 03/15/2024 Active IMMUNIZATIONS Vaccine Route Administration Date Status Comme nts Influenza Unknown 07/08/2023 Refused SOCIAL HISTORY Tobacco Use: Social History Observation Description Date Details (start date - stop date) Never Smoker NA - NA Sex Assigned At : Social History Observation Description Sex Assigned At Unknown Tobacco Use/Smoking Question Answer Notes Patient is a nonsmoker Alcohol Screen Question Answer Notes Did you have a drink containing alcohol in the p ast year? No Points 0 Interpretation Negative PROBLEMS Problem Type ICD Code Onset Dates Problem Status W/U Status Risk SNOMED Code Notes Problem Colon cancer screening (Z12.11) Active confirmed 797815033 Problem History of adenomatous polyp of colon (Z86.010) Active confirmed 905523738 Problem Preprocedural examination (Z01.818) Active confirmed 953703819109879 Problem Diverticulosis of large intestine without perforation or abscess without bleeding (K57.30) Active confirmed Diverticul ar disease of colon (119322919) Encounters Encounter Location Date Provider Diagnosis [facility] [place] [address] [place] [id number] 12/30/2023 Ceasar Barnes [facility] [place] [address] [place] [id number] 03/30/2024 Ceasar Barnes Colon cancer screeni ng Z12.11 ; Colon polyps K63.5 ; Diverticulosis of large intestine without perforation or abscess without bleeding K57.30 and Other hemorrhoids K64.8 [facility] [address] [place] [phone] 01/08/2024 Ceasar Barnes [facility] [address] [place] [phone] 01/09/2024 Ceasar Barnes [facility] [address] [place] [phone] 01/10/2024 Ceasar Barnes [facility] [address] [place] [phone] 02/01/2024 Ceasar Barnes ASSESSMENTS Encounter Date Diagnosis Assessment Notes Treatment Notes Treatment Clinical Notes 03/30/2024 Colon cancer screening (ICD-10 - Z12.11) 03/30/2024 Colon polyps (ICD-10 - K63.5) 03/30/2024 Diverticulosis of large intestine without perforation or abscess without bleeding (ICD-10 - K57.30) 03/30/2024 Other hemorrhoids (ICD-10 - K64.8) PLAN OF TREATMENT Future Test Test Name Order Date COLONOSCOPY 07/08/2023 Insurance Providers Payer Name Payer Address Payer Phone Subscriber Number Group Number Insured Name Patient Relationship to Insured Coverage Start Date Coverage End Date [place] [facility] [address] [place] [phone] [id number] DALTON MCCARTHY Self - patient is the insured MEDICAL (GENERAL) HISTORY Medical History History ICD Code NIDDM HTN Colonoscopy done prior to at [facility] with removal of at least one tubular adenoma Denies [place],CVA,Lung disease,renal disease Surgical History Surgery Date(Month/Year) Hemorrhoids in his 's
--- OUTSIDE RECORDS SUMMARY | 2024-10-11 10:31 | XMS_ITS | Clinical Summary ---
Author Organization [employer] Address [address] [facility] 7t [place] [address] Care Team Providers Care Family Medicine Physician Assistant Name Role Phone Unavailable Primary Care Provider Unavailabl e Social History Tobacco Use Types Packs/Day Years Used Date Smoking Tobacco: Never Assessed Sex and Gender Information Value Date Recorded Sex Assigned at Male 11/12/2022 3:13 PM EST Legal Sex Male 3:12 PM EST Gender Identity Male 11/12/2022 3:13 PM EST Sexual Orientation Don't know 12/03/2022 10 :36 AM EDT Plan of Treatment Health Maintenance Due Date Last Done Comments CT Colonography 1959 Colonoscopy 1959 Colorectal Cancer Screening 1959 Depression Screening 1959 FIT DNA/Cologuard 1959 FIT 1959 FOBT 1959 HIV Screening 1959 Lipid Panel 1959 SDOH Screening 1959 Sigmoidoscopy 1959 Alcohol/Substance Use Screening 1971 Tobacco Screening 1971 Hepatitis C Screening 12/13/1977 Zoster Vaccines (1 of 2) 12/13/2009 DTaP/Tdap/Td Vaccines (1 - Tdap) 08/04/2015 08/03/20 15 COVID-19 Vaccine ( - 2023-2 5 season) 2024 Influenza Vaccine (#1) 2024 RSV Patients and Pa tients Aged 60 years or older (1 - 1-dose 75+ series) 12/13/2034 HIB Vaccines Aged Out No longer eligi ble based on patient's age to complete this topic HPV Vaccines Aged Out No longer eligi ble based on patient's age to complete this topic Hepatitis A Vaccines Aged Out No long er eligible based on patient's age to complete this topic Hepatitis B Vaccines Aged Out No long er eligible based on patient's age to complete this topic IPV Vaccines Aged Out No longer eligi ble based on patient's age to complete this topic Meningococcal Vaccine Aged Out No kate braxton eligible based on patient's age to complete this topic Pneumococcal Vaccine: Pediat rics (0 to 5 Years) and At-Risk Patients (6 to 49) Years) Aged Out No longer elig ible based on patient's age to complete this topic RSV under 20 months Aged Out No longe r eligible based on patient's age to complete this topic Rotavirus Vaccines Aged Out No longer eligible based on patient's age to complete this topic Insurance [facility] STANDARD [facility] FULL
== END 2024-10-11 08:15 | disposition home or self-care (01) ==
PROVIDERS: Emergency Provider Emergency Medicine; PCP Internal Medicine
DX: B02.9 Zoster without complications (principal); E11.9 Type 2 diabetes mellitus without complications; I10 Essential (primary) hypertension; Z79.84 Long term (current) use of oral hypoglycemic drugs; Z79.899 Other long term (current) drug therapy
CPT/HCPCS: 99283; 99284

== ENCOUNTER 2024-10-29 08:24 | Outpatient (REF) | payer MEDICAID, SELFPAY ==
--- OUTSIDE RECORDS SUMMARY | 2024-10-29 08:29 | XMS_ITS ---
Author Organization [facility] Address [address] [place] [address] Care Team Providers Care Associate Designer Name Role Phone Maia Joyce Primary Care Provider Unavailab Ceasar Davis Unavailable [phone] PROBLEMS Problem Type ICD Code Onset Dates Problem Status W/U Status Risk SNOMED Code Notes Problem Diverticulosis of large intestine without perforation or abscess without bleeding (K57.30) Active confirmed Diverticul ar disease of colon (925991032) Encounters Encounter Location Date Provider Diagnosis [facility] [place] [address] [place], [place] [phone] 03/30/2024 Ceasar Barnes Colon cancer scree [facility] [...]
--- OUTSIDE RECORDS SUMMARY | 2024-10-29 08:29 | XMS_ITS | Clinical Summary ---
Author Organization [employer] Address [address] [facility] 7[address] [place] [address] Care Team Providers Care Line Decorator Name Role Phone Unavailable Primary Care Provider [...] Tobacco Screening 1971 Hepatitis C Screening 12/13/1977 Pneumococcal Vaccine: 50+ Ye ars (1 of 1 - PCV) 12/13/2009 Zoster Vaccines (1 of 2) 12/13/2009 DTaP/Tdap/Td Vaccines (1 - Tdap) 08/04/2015 08/03/20 15 COVID-19 Vaccine (1 - 2023-2 5 season) 2024 Influenza Vaccine [...] patient's age to complete this topic Insurance [facility] STAND[facility] FULL
--- OUTSIDE RECORDS SUMMARY | 2024-10-29 08:30 | XMS_ITS ---
Author Organization [facility] Address [address] [place] [address] Care Team Providers Care Cigarette Book Maker Name Role Phone Maia Joyce Primary Care Provider Unavailab Ceasar Davis Unavailable [phone] REASON FOR VISIT See your other mullen on him please--pt rescheduled for 03-30-2024 Encounters Encounter Location Date Provider Diagnosis [facility] [address] [place] [address] 01/10/2024 Ceasar Barnes PLAN OF TREATMENT No Information
--- OUTSIDE RECORDS SUMMARY | 2024-10-29 08:30 | XMS_ITS | Patient Health Record ---
Author Organization [facility] Address [address] [place] [address] Care Team Providers Care Weather Forcaster Name Role Phone Maia Joyce Primary Care Provider Unavailab Ceasar Davis Unavailable [phone] ALLERGIES No Known Allergies RESULTS Component Value Reference Range Notes Glucose, Whole Blood Reviewed date:12/30/2023 06:18:59 PM Interpretation: Performing Lab:[facility], [address] [place] [phone] Notes/Report: Glucose, Whole Blood 124 60-115 mg/dL METER # : [id number] Glucose, Whole Blood Reviewed date:03/31/2024 06:42:02 PM Interpretation: Performing Lab:[facility], [address] [place] [phone] Notes/Report: Glucose, Whole Blood 139 60-115 mg/dL METER # : [id number] Pathology Reviewed date:04/07/2024 06:35:51 PM Interpretation: Performing Lab:[facility], [address] [place] [phone] Notes/Report: REASON FOR REFERRAL No Information MEDICATIONS [...] Problem Colon cancer screening (Z12.11) Active confirmed 481524270 Problem History of adenomatous polyp of colon (Z86.010) Active confirmed 217171672 Problem Preprocedural examination (Z01.818) Active confirmed 112219986916789 Problem Diverticulosis of large intestine without perforation or abscess without bleeding (K57.30) Active confirmed Diverticul ar disease of colon (287983045) Encounters Encounter Location Date Provider Diagnosis [facility] [place] [address] [place] [id number] 12/30/2023 Ceasar Barnes [facility] [place] [address] [place] [id number] 03/30/2024 Ceasar Barnes Colon cancer screeni ng Z12.11 ; Colon polyps K63.5 ; Diverticulosis of large intestine without perforation or abscess without bleeding K57.30 and Other hemorrhoids K64.8 [facility] [address] [place] [phone] 01/08/2024 Ceasar Barnes [facility] [address] [place] [phone] 01/09/2024 Ceasar Barnes [facility] [address] [place] [phone] 01/10/2024 Ceasar Barnes [facility] [address] [place] [phone] 02/01/2024 Ceasar Barnes ASSESSMENTS Encounter Date Diagnosis [...] Date Coverage End Date [place] [facility] [address] [place] [id number] DALTON MCCARTHY Self - patient is the insured MEDICAL (GENERAL) HISTORY Medical History History ICD Code NIDDM HTN Colonoscopy done prior to at [facility] with removal of at least one tubular adenoma Denies [place],CVA,Lung disease,renal disease Surgical History Surgery Date(Month/Year) Hemorrhoids in his 's
--- OUTSIDE RECORDS SUMMARY | 2024-10-29 08:30 | XMS_ITS ---
Author Organization [facility] Address [address] [place] [address] Care Team Providers Care Radio Time Buyer Name Role Phone Maia Joyce Primary Care Provider Unavailab Ceasar Davis Unavailable [phone] REASON FOR VISIT colon prep and which [...] Active Encounters Encounter Location Date Provider Diagnosis [facility] [address] [place] [address] 02/01/2024 Ceasar Barnes PLAN OF TREATMENT Medication [...]
[2024-10-29 08:36] LABS: MANUAL DIFF FLAG NO
[2024-10-29 08:50] LABS: Basophils Percent Auto 0.6 % (0-2); Eosinophils Absolute Auto 0.2 X10*3/uL (0.0-0.4); Eosinophils Percent Auto 2.3 % (0-4); Hematocrit 40.5 % (42.0-52.0); Hemoglobin 13.5 g/dl (14.0-18.0); Imm Gran Abs Auto 0.03 X10*3/uL (0.00-0.03); Imm Gran Pct Auto 0.4 % (0.0-0.4); Lymphocytes Absolute Auto 2.3 X10*3/uL (1.2-4.9); Lymphocytes Percent Auto 32.8 % (20-40); Mean Corpuscular HGB Conc 33.3 g/dl (31.0-36.0); Mean Corpuscular Hemoglobin 30.8 pg (27.0-33.0); Mean Corpuscular Volume 92.3 fL (80.0-98.0); Monocytes Absolute Auto 0.6 X10*3/uL (0.1-1.2); Monocytes Percent Auto 8.3 % (2-11); Neutrophils Absolute Auto 3.8 x10*3/uL (2.0-8.3); Neutrophils Percent Auto 55.6 % (45-73); Platelet Count 189 X10*3/uL (160-400); Red Blood Count 4.39 X10*6/uL (4.60-5.80); Red Cell Distribution Width 13.6 % (11.0-16.0); White Blood Count 6.9 X10*3/uL (4.8-10.8)
[2024-10-29 09:04] LABS: Estimated Average Glucose 186 mg/dL; Hemoglobin A1C 231.3643 umol/L; Hemoglobin A1c % 8.1 % (<6.0)
[2024-10-29 09:12] LABS: Creatinine Urine 74.11 mg/dL; Microalbum/Creatinine Ratio Ur 6.7 ug/mg cr (<30)
[2024-10-29 09:15] LABS: Alanine Aminotransferase 35 U/L (0-40); Albumin Level 4.3 g/dL (3.5-5.0); Alkaline Phosphatase 96 U/L (39-117); Anion Gap 14 (12-20); Aspartate Amino Transferase 26 U/L (5-37); Bilirubin Total 0.2 mg/dL (0.0-1.0); Blood Urea Nitrogen 22 mg/dL (9-16); Calcium 9.6 mg/dL (8.4-10.2); Carbon Dioxide 26 mmol/L (22-29); Chloride 106 mmol/L (96-108); Cholesterol 201 mg/dL (<200); Estimated Glomerular Filt Rate > 60; Glucose Random 141 mg/dL (60-115); HDL Cholesterol 47 mg/dL (>40); LDL Cholesterol Calculated 129 mg/dL (<100); Potassium 4.6 mmol/L (3.3-5.1); Sodium 141 mmol/L (135-145); Total Protein 7.6 g/dL (6.5-8.0); Triglycerides 126 mg/dL (<150)
[2024-10-29 09:33] LABS: Prostate Specific Antigen Scr 0.12 ng/mL (<0.05-4.0)
== END 2024-10-29 08:25 | disposition home or self-care (01) ==
LOC: HO.LAB 08:24
PROVIDERS: PCP Internal Medicine; Visit Provider Internal Medicine
DX: Z00.00 Encounter for general adult medical examination without abnormal findings (principal); E11.9 Type 2 diabetes mellitus without complications; E78.00 Pure hypercholesterolemia, unspecified; I10 Essential (primary) hypertension; N40.1 Benign prostatic hyperplasia with lower urinary tract symptoms
CPT/HCPCS: 36415; 80053; 80061; 82043; 82570; 83036; 84153; 85025

== ENCOUNTER 2025-06-06 09:44 | Outpatient (REF) | payer MEDICARE, SELFPAY ==
--- OUTSIDE RECORDS SUMMARY | 2023-12-30 07:50 | XMS_ITS ---
Author Organization [facility] Address [address] [place] [address] Care Team Providers Care Spd Manager Name Role Phone Maia Joyce Primary Care Provider Unavailab Ceasar Davis [phone] REASON FOR VISIT screening, hx polyps Encounters Encounter Location Date Provider Diagnosis [facility] [place] [address] [place], [place] [phone] 12/30/2023 Ceasar Barnes Plan Of Treatment No Information Progress Notes * DALTON MCCARTHYDOB:1960 (64 yo M)Acc No.[id number]:12/30/2023 COLON WITH MAC Patient: DALTON DOWLING Provider: Kiel Barnes MD :1960 A ge:63 Y S ex:Male Date:12/30/2023 Address:[address], [facility] Pcp:Miaa Joyce Subjective: * Chief Complaints: * 1 . Screening, hx polyps. * Medical History: Objective: * Vitals: Assessment: Plan: * Treatment: * * The named appointment provid er may or may not be the originator of this progress note, and it is not deemed complete until electronically signed by the appointment provider. Sign off status: Pending * Provider: Kiel Barnes MD Date: 12/30/2023 Generated for Sadei ng/Faelging/eTransmitting on: 06/06/2025 11:35 AM EDT
--- OUTSIDE RECORDS SUMMARY | 2024-03-30 08:00 | XMS_ITS ---
Author Organization [facility] Address [address] [place] [address] Care Team Providers Care Grease Maker Head Name Role Phone JosephzohaibMaia Primary Care Provider UnavailCeasar Boyd Unavailable [phone] Problems Problem Type SNOMED Code ICD Code Onset Dates Problem Status W/U Status Risk Notes Problem Diverticular disease of colon (692342083) Diverticulosis of large intestine without perforation or abscess without bleeding (K57.30) Active confirmed Encounters Encounter Location Date Provider [place] [facility] [place] [address] [place], [place] [phone] 03/30/2024 Ceasar Barnes Colon cancer scree whitney [...] Notes * DALTON MCCARTHYDOB:1960 (64 yo M)Acc No.[id number]:03/30/2024 COLON WITH MAC Patient: BABATUNDE DOWLINGIX Provider: Kiel Barnes MD :1960 A ge:63 Y S ex:Male Date:03/30/2024 Address:[address] [place] [address] [address], [place], [id number] Pcp:Maia Joyce Subjective: * Chief Complaints: * [...] 0 03/30/2024 Generated for Dmitriy betancourt/Melba/Lastitting on: 0 06/06/2025 11:35 AM EDT
[2025-06-06 10:46] LABS: Hemoglobin A1C 337.2227 umol/L; Total Hemoglobin (HGBA1C) 3524.9290 umol/L
[2025-06-06 11:10] LABS: Alanine Aminotransferase 27 U/L (0-40); Albumin Level 4.5 g/dL (3.5-5.0); Alkaline Phosphatase 139 U/L (39-117); Anion Gap 13 (12-20); Aspartate Amino Transferase 20 U/L (5-37); Blood Urea Nitrogen 20 mg/dL (9-16); Calcium 9.8 mg/dL (8.4-10.2); Carbon Dioxide 29 mmol/L (22-29); Chloride 102 mmol/L (96-108); Cholesterol 194 mg/dL (<200); Estimated Glomerular Filt Rate > 60; HDL Cholesterol 35 mg/dL (>40); Potassium 5.2 mmol/L (3.3-5.1); Sodium 139 mmol/L (135-145); Total Protein 7.5 g/dL (6.5-8.0); Triglycerides 227 mg/dL (<150)
--- OUTSIDE RECORDS SUMMARY | 2025-06-06 11:35 | XMS_ITS | Patient Health Record ---
Author Organization [facility] Address [address] [place] [address] Care Team Providers Care Planishing Hammer Operator Name Role Phone Maia Joyce Primary Care Provider Unavailab Ceasar Davis Unavailable [phone] Allergies No Known Allergies Reason For Referral No Information Medications Medication SIG (Take, Route, Frequency, Duration) Notes [...] the procedure for 2 days 03/15/2024 Active Immunizations Vaccine Route Administration Date Status Comme nts Influenza Unknown 07/08/2023 Refused Social History Tobacco Use: Social History Observation Description Date Details (start date - stop date) Never Smoker NA - NA Tobacco Use/Smoking Question Answer Notes Patient is a nonsmoker Alcohol Screen Question Answer Notes Did you have a drink containing alcohol in the p ast year? No Points 0 Interpretation Negative Section Notes: Nonsmoker; no significant al cohol Problems Problem Type SNOMED Code ICD Code Onset Dates Problem Status W/U Status Risk Notes Problem 537160237 Colon cancer screening (Z12.11) Active confirmed Problem 204999641 History of adenomatous polyp of colon (Z86.010) Active confirmed Problem Diverticular disease of colon (167216636) Diverticulosis of large intestine without perforation or abscess without bleeding (K57.30) Active confirmed Problem 741068472558102 Preprocedural examination (Z01.818) Active confirmed Plan Of Treatment Future Test Test Name Order Date COLONOSCOPY 07/08/2023 Insurance Providers Payer Name Payer Address Payer Phone Subscriber Number Group Number Insured Name Patient Relationship to Insured Coverage Start Date Coverage End Date [place] [address] [place] [phone] [id number] DALTON MCCARTHY Self - patient is the insured Medical (General) History Medical History History ICD Code NIDDM HTN Colonoscopy done prior to at [facility] with removal of at least one tubular adenoma Denies [place],CVA,Lung disease,renal disease Surgical History Surgery Date(Month/Year) Hemorrhoids in his 20's
--- OUTSIDE RECORDS SUMMARY | 2025-06-06 11:35 | XMS_ITS | Clinical Summary ---
Author Organization [facility] Address [address] [place] [address] Phone Care Team Providers Care Hop Grower Name Role Phone Physician, Pcp Unknown Primary Care Provider Freida vailable Allergies No known active allergies Medications No known medications Encounters Date Type Department Care Team Description 05/27/2025 6:01 PM EDT - 05/28/2025 1:51 AM EDT Emergency [facility] Emergency [address] [place] [address] Discharge Disposition: Left Against Medical Advice from Last 3 Months Medical History Medical History Date Comments Diabetes mellitus ([facility] V24, [facility] V28) Social History Tobacco Use Types Packs/Day Years Used Date Smoking Tobacco: Never Assessed Sex and Gender Information Value Date Recorded Sex Assigned at Not on file Legal Sex Male 6:52 PM EST Gender Identity Not on file Sexual Orientation Not on file Obstetrics History Last Filed Vital Signs Vital Sign Reading Time Taken Comments Blood Pressure 132/79 05/27/2025 10:28 PM EDT Pulse 89 05/27/2025 10:28 PM EDT Temperature 38.1 C (100.6 F) 05/27/2025 10:28 PM EDT Respiratory Rate 18 05/27/2025 10:28 PM EDT Oxygen Saturation 98% 05/27/2025 10:28 PM EDT Inhaled Oxygen Concentration - - Weight - - Height 182.9 cm (6') 05/27/2025 6:18 PM EDT Body Mass Index - - Plan of Treatment Health Maintenance Due Date Last Done Comments DTaP,Tdap,and Td Vaccines (1 - Tdap) 12/13/1978 Pneumococcal Vaccine: 50+ Ye ars (1 of 1 - PCV) 12/13/2009 Zoster Vaccines (1 of 2) 12/13/2009 Depression Screening 09/12/2024 COVID-19 Vaccine (1 - 4-2 5 season) 2025 Influenza Vaccine (#1) 2025 Abdominal Aortic Aneurysm (A AA) Screen 05/28/2025 Cholesterol Screening (Lipid Panel) 05/28/2025 Colorectal Cancer Screening: Colonoscopy 05/28/2025 Falls Risk Assessment 05/28/2025 Hepatitis C Screening 05/28/2025 Medicare Annual Wellness Visit 05/28/2025 Social Influencers of Health Screening 05/28/2025 RSV Immunization Adult Patie nts (1 - 1-dose 75+ series) 12/13/2034 HIB [...] on patient's age to complete this topic MMR Vaccines Aged Out No longer eligi ble based on patient's age to complete this topic Meningococcal ACWY Vaccine Aged Out N o longer eligible based on patient's age to complete this topic Meningococcal B Vaccine Aged Out No l onger eligible based on patient's age to complete this topic RSV Immunization Patients Un huong 20 months Aged Out No longer eligible b ased on patient's age to complete this topic Varicella Vaccines Aged Out No longer eligible based on patient's age to complete this topic Procedures Procedure Name Priority Date/Time Associated Diagnosis Comments ECG ANNOTATED 05/28/2025 ECG 12-LEAD Routine 05/27/2025 9:01 PM EDT TROPONIN I HIGH SENSITIVITY Timed 05/27/2025 8:58 PM EDT CBC WITH AUTO DIFFERENTIAL STAT 05/27/2025 7:25 PM EDT B-TYPE NATRIURETIC PEPTIDE STAT 05/27/2025 7:25 PM EDT MAGNESIUM STAT 05/27/2025 7:25 PM EDT LIPASE STAT 05/27/2025 7:25 PM EDT COMPREHENSIVE METABOLIC PANEL STAT 05/27/2025 7:25 PM EDT CBC AND DIFFERENTIAL STAT 05/27/2025 7:25 PM EDT TROPONIN I HIGH SENSITIVITY Timed 05/27/2025 7:25 PM EDT ECG 12-LEAD STAT 05/27/2025 6:16 PM EDT from Last 3 Months Results * ECG-Annotated (05/28/2025) us Sabrina Diaz MD ECG ORDERABLES Final Result * ECG 12 lead (05/27/2025 9:01 PM EDT) Only the most recent of2 resultswithin the time period is included. Pathologist [facility] Ventricular Rate ECG 79 BPM GEMUSE Atrial Rate 79 BPM GEMUSE P-R Interval 152 ms GEMUSE QRS Duration 106 ms GEMUSE Q-T Interval 368 ms GEMUSE QTc 421 ms GEMUSE P Wave Bumpass 70 degrees GEMUSE R Bumpass 6 degrees GEMUSE T Bumpass 53 degrees GEMUSE ECG Interpretation Normal sinus rhythm Incomplete right bundle branch block When compared with ECG of 27-MAY-2025 18:16, (unconfirmed) No significant change was found Confirmed by MARTINA LEYVA ([id number]) on 05/28/2025 8:08:59 AM GEMUSE 05/27/2025 9:01 PM EDT 05/28/2025 8:08 AM EDT us Anibal Buckner MD ECG ORDERABLES Final Result GEMUSE * Troponin I high sensitivity (05/27/2025 8:58 PM EDT) Only the most recent of2 resultswithin the time period is included. Pathologist [facility] High Sensitivity Troponin I <3 <=79 ng/L LAB CHEMISTRY METHOD 05/27/2025 9:[address] [facility] Blood Venous blood specimen / Unknown Venipuncture / Unknown 05/27/2025 8:58 PM EDT 05/27/2025 9:[address] [facility] - 05/27/2025 9:30 PM EDT High levels of biotin in samples may falsely decrease hsTroponin values. Use caution when interpreting hsTroponin results in patients taking biotin who exhibit renal impairment (eGFR <60) or in patients taking more than 20 mg/day of biotin. us Anibal Buckner MD LAB BLOOD ORDERABLES Final Resul t [facility] [address] [place] [address], * (ABNORMAL) CBC auto differential (05/27/2025 7:25 PM EDT) WBC 8.0 4.8 - 10.8 K/mcL LAB HEMETOLOGY METHOD 05/27/2025 8:[address] [facility] RBC 4.70 4.50 - 5.50 M/mcL LAB HEMETOLOGY METHOD 05/27/2025 8:[address] [facility] Hemoglobin 14.3 13.5 - 17.5 g/dL LAB HEMETOLOGY METHOD 05/27/2025 8:[address] [facility] Hematocrit 41.7(L) 42.0 - 54.0 % LAB HEMETOLOGY METHOD 05/27/2025 8:[address] [facility] MCV 88.3 79.0 - 98.0 FL LAB HEMETOLOGY METHOD 05/27/2025 8:[address] [facility] MCH 30.3 27.0 - 32.0 pcg LAB HEMETOLOGY METHOD 05/27/2025 8:[address] [facility] MCHC 34.3 32.0 - 37.0 g/dL LAB HEMETOLOGY METHOD 05/27/2025 8:07 PM [facility] RDW 13.5 11.0 - 15.0 % LAB HEMETOLOGY METHOD 05/27/2025 8:07 PM [facility] Platelets 164 130 - 400 K/mcL LAB HEMETOLOGY METHOD 05/27/2025 8:07 PM [facility] MPV 9.8 7.0 - 11.0 FL LAB HEMETOLOGY METHOD 05/27/2025 8:07 PM [facility] NRBC 0.0 <1.0 % LAB HEMETOLOGY METHOD 05/27/2025 8:07 PM [facility] NRBC Absolute 0.00 <0.10 K/mcL LAB HEMETOLOGY METHOD 05/27/2025 8:07 PM [facility] Neutrophils Relative 82.0 % LAB HEMETOLOGY METHOD 05/27/2025 8:07 PM [facility] Lymphocytes Relative 6.5 % LAB HEMETOLOGY METHOD 05/27/2025 8:07 PM [facility] Monocytes Relative 10.6 % LAB HEMETOLOGY METHOD 05/27/2025 8:07 PM [facility] Eosinophils Relative 0.1 % LAB HEMETOLOGY METHOD 05/27/2025 8:07 PM [facility] Basophils Relative 0.5 % LAB HEMETOLOGY METHOD 05/27/2025 8:07 PM [facility] Immature Granulocytes Relative 0.3 % LAB HEMETOLOGY METHOD 05/27/2025 8:07 PM [facility] Neutrophils Absolute 6.56 1.50 - 7.00 K/mcL LAB HEMETOLOGY METHOD 05/27/2025 8:07 PM [facility] Lymphocytes Absolute 0.52(L) 1.00 - 5.00 K/mcL LAB HEMETOLOGY METHOD 05/27/2025 8:[address] [facility] Monocytes Absolute 0.85 0.20 - 1.00 K/[facility] HEMETOLOGY METHOD 05/27/2025 8:[address] [facility] Eosinophils Absolute 0.01 0.00 - 0.50 K/[facility] LAB HEMETOLOGY METHOD 05/27/2025 8:[address] [facility] Basophils Absolute 0.04 0.00 - 0.20 K/[facility] LAB HEMETOLOGY METHOD 05/27/2025 8:[address] [facility] Immature Granulocytes Absolute 0.02 0.00 - 0.03 K/[facility] LAB HEMETOLOGY METHOD 05/27/2025 8:[address] [facility] Blood Venous blood specimen / Unknown Venipuncture / Unknown 05/27/2025 7:25 PM EDT 05/27/2025 7:50 PM EDT us Anibal Buckner MD LAB BLOOD ORDERABLES Final Resul t Performing Organization Address City/[facility]/ZIP Co de Phone Number [facility] [address] [place] [address], [place] [phone] * B-type natriuretic peptide (05/27/2025 7:25 PM EDT) BNP 6 <=100 pcg/mL LAB CHEMISTRY METHOD 05/27/2025 8:[address] [facility] Blood Venous blood specimen / Unknown Venipuncture / Unknown 05/27/2025 7:25 PM EDT 05/27/2025 7:50 PM EDT us Anibal Buckner MD LAB BLOOD ORDERABLES Final Resul t [facility] [address] [place] [address], [place] [phone] * (ABNORMAL) Magnesium (05/27/2025 7:25 PM EDT) Pathologist [facility] Magnesium 1.8(L) 1.9 - 2.6 mg/dL LAB CHEMISTRY METHOD 05/27/2025 8:[address] [facility] Blood Venous blood specimen / Unknown Venipuncture / Unknown 05/27/2025 7:25 PM EDT 05/27/2025 7:50 PM EDT us Anibal Buckner MD LAB BLOOD ORDERABLES Final Resul t Performing Organization Address City/[facility]/ZIP Co de Phone Number [facility] [address] [place] [address], [place] [phone] * Lipase (05/27/2025 7:25 PM EDT) Pathologist [facility] Lipase 18 13 - 75 unit/L LAB CHEMISTRY METHOD 05/27/2025 8:[address] [facility] Blood Venous blood specimen / Unknown Venipuncture / Unknown 05/27/2025 7:25 PM EDT 05/27/2025 7:50 PM EDT us Anibal Buckner MD LAB BLOOD ORDERABLES Final Resul t Performing Organization Address City/[facility]/ZIP Co de Phone Number [facility] [address] [place] [address], [place] [phone] * (ABNORMAL) Comprehensive metabolic panel (05/27/2025 7:25 PM EDT) Pathologist [facility] Sodium 136 133 - 145 mmol/L LAB CHEMISTRY METHOD 05/27/2025 8:[address] [facility] Potassium 3.8 3.5 - 5.5 mmol/L LAB CHEMISTRY METHOD 05/27/2025 8:[address] [facility] Chloride 104 96 - 110 mmol/L LAB CHEMISTRY METHOD 05/27/2025 8:25 PM [facility] CO2 23 21 - 32 mmol/L LAB CHEMISTRY METHOD 05/27/2025 8:25 PM [facility] Anion Gap 9 3 - 11 LAB CHEMISTRY METHOD 05/27/2025 8:25 PM [facility] Glucose 234(H) 70 - 100 mg/dL LAB CHEMISTRY METHOD 05/27/2025 8:25 PM [facility] BUN 21 5 - 25 mg/dL LAB CHEMISTRY METHOD 05/27/2025 8:25 PM [facility] Creatinine 1.18 0.70 - 1.30 mg/dL LAB CHEMISTRY METHOD 05/27/2025 8:25 PM [facility] eGFR 68 >=60 mL/min/1. 73m2 LAB CHEMISTRY METHOD 05/27/2025 8:25 PM [facility] Comment:Calculation based on the Chronic Kidney Disease Epidemiology Collaboration (CKD-EPI) equation refit without adjustment for race. BUN/Creatinine Ratio 17.8 LAB CHEMISTRY METHOD 05/27/2025 8:25 PM [facility] Calcium 9.6 8.5 - 10.5 mg/dL LAB CHEMISTRY METHOD 05/27/2025 8:25 PM [facility] AST (SGOT) 23 10 - 42 unit/L LAB CHEMISTRY METHOD 05/27/2025 8:25 PM [facility] ALT (SGPT) 35 10 - 60 unit/L LAB CHEMISTRY METHOD 05/27/2025 8:25 PM [facility] Alkaline Phosphatase 128(H) 42 - 121 unit/L LAB CHEMISTRY METHOD 05/27/2025 8:25 PM [facility] Total Protein 7.3 6.0 - 8.0 g/dL LAB CHEMISTRY METHOD 05/27/2025 8:25 PM [facility] Albumin 4.3 3.2 - 5.0 g/dL LAB CHEMISTRY METHOD 05/27/2025 8:[address] [facility] Total Bilirubin 0.5 0.0 - 1.4 mg/dL LAB CHEMISTRY METHOD 05/27/2025 8:[address] [facility] Blood Venous blood specimen / Unknown Venipuncture / Unknown 05/27/2025 7:25 PM EDT 05/27/2025 7:50 PM EDT us Anibal Buckner MD LAB BLOOD ORDERABLES Final Resul t [facility] [address] [place] [address], from Last 3 Months Insurance MEDICARE Care Teams Hop Grower Relationship Specialty Start Date End Date Physician, Pcp Unknown PCP - General 05/28/25
== END 2025-06-06 09:45 | disposition home or self-care (01) ==
LOC: HO.LAB 09:44
PROVIDERS: PCP Internal Medicine; Visit Provider Internal Medicine
DX: E11.65 Type 2 diabetes mellitus with hyperglycemia (principal); E78.00 Pure hypercholesterolemia, unspecified; I10 Essential (primary) hypertension; Z91.148 Patient's other noncompliance with medication regimen for other reason
CPT/HCPCS: 36415; 80053; 80061; 83036

== ENCOUNTER 2025-06-28 07:26 | Outpatient (REF) | payer MEDICARE, SELFPAY ==
--- OUTSIDE RECORDS SUMMARY | 2023-12-30 07:50 | XMS_ITS ---
Author Organization [facility] Address [address] [place] [address] Care Team Providers Care Bioinformatics Analyst Name Role Phone Maia Joyce Primary Care Provider Unavailab Ceasar Davis [phone] REASON FOR VISIT screening, hx polyps Encounters Encounter Location Date Provider Diagnosis [facility] [place] [address] [place], [place] [id number] 12/30/2023 Ceasar Barnes Plan Of Treatment No Information Progress Notes * DALTON MCCARTHYDOB:1960 (64 yo M)Acc No.[id number]:12/30/2023 COLON WITH MAC Patient: DALTON DOWLING Provider: Kiel Barnes MD :1960 A ge:63 Y S ex:Male Date:12/30/2023 Address:[address], [facility] Pcp:Maia Joyce Subjective: * Chief Complaints: * 1 . Screening, hx polyps. * Medical History: Objective: * Vitals: Assessment: Plan: * Treatment: * * The named appointment provid er may or may not be the originator of this progress note, and it is not deemed complete until electronically signed by the appointment provider. Sign off status: Pending * Provider: Kiel Barnes MD Date: 0 12/30/2023 Generated for Dmitriy betancourt/Melba/eTransmitting on: 1 07:31 AM EDT
--- OUTSIDE RECORDS SUMMARY | 2024-03-30 08:00 | XMS_ITS ---
Author Organization [facility] Address [address] [place] [address] Care Team Providers Care Embryology Teacher Name Role Phone JosephzohaibMaia Primary Care Provider UnavailCeasar Boyd Unavailable [phone] Problems Problem Type SNOMED Code ICD Code Onset Dates Problem Status W/U Status Risk Notes Problem Diverticular disease of colon (830536383) Diverticulosis of large intestine without perforation or abscess without bleeding (K57.30) Active confirmed Encounters Encounter Location Date Provider Diagnosis [facility] [place] [address] [place], [place] [phone] 03/30/2024 Ceasar Barnes Colon cancer scree whitney Z12.11 ; Colon polyps K63.5 ; Diverticulosis of large intestine without perforation or abscess without bleeding K57.30 and Other hemorrhoids K64.8 Assessments Encounter Date Diagnosis (ICD Code) Assessment Notes Treatment Notes Treatment Clinical Notes Section Notes 03/30/2024 Colon cancer screening (ICD-10 - Z12.11) 03/30/2024 Colon polyps (ICD-10 - K63.5) 03/30/2024 Diverticulosis of large intestine without perforation or abscess without bleeding (ICD-10 - K57.30) 03/30/2024 Other hemorrhoids (ICD-10 - K64.8) Plan Of Treatment No Information Progress Notes * DALTON MCCARTHYDOB:1960 (64 yo M)Acc No.[id number]:03/30/2024 COLON WITH MAC Patient: BABATUNDE DOWLINGIX Provider: Kiel Barnes MD :1960 A ge:63 Y S ex:Male Date:03/30/2024 Address:[address] [place] [address] [address], [place], [id number] Pcp:Maia Joyce Subjective: * Chief Complaints: * * Medical History: Objective: * Vitals: Assessment: * Assessment: 1. C olon cancer screening - Z12.11 (Primary) 2 . C olon polyps - K63.5? 3. D iverticulosis of large intestine without perforation or abscess without bleeding - K57.30 4 . O ther hemorrhoids - K64.8 Plan: * Treatment: * Procedure Codes: 4 5385 LESION REMOVAL COLONOSCOPY * * The named appointment provid er may or may not be the originator of this progress note, and it is not deemed complete until electronically signed by the appointment provider. Sign off status: Pending * Provider: Kiel Barnes MD Date: 0 03/30/2024 Generated for Dmitriy betancourt/Melba/Lastitting on: 1 07:30 AM EDT
--- OUTSIDE RECORDS SUMMARY | 2025-06-28 07:31 | XMS_ITS | Patient Health Record ---
Author Organization [facility] Address [address] [place] [address] Care Team Providers Care Truck Striker Name Role Phone Maia Joyce Primary Care Provider Unavailab Ceasar Davis Unavailable [phone] Allergies No Known Allergies Reason For Referral [...] a day for the day before the colonoscopy; Duration: 2 days 03/15/2024 Active Dulcolax (colon prep) 5 MG Take 2 pills 2 days before the colonoscopy, and then take 2 pills at 3:00 p.m and 2 pills at 7:00p.m. the day before the colonoscopy Orally 2 pills 2 days before the colonoscopy and then two tablets twice a day for one day before the colonoscopy; Duration: 2 days 10/02/2023 Active MiraLax (colon prep) [...] at 5:00 p.m. the day before the procedure; Duration: 2 days 10/02/2023 Active Tamsulosin HCl 0.4 MG 1 capsule Orally O nce a day; Duration: 30 day(s) 01/11/2024 Active Finasteride 5 MG 1 tablet Orally Once a day; Duration: 30 day(s) 01/11/2024 Active Lisinopril 10 MG 1 tablet Orally Once a day; Duration: 30 day(s) 01/11/2024 Active Jardiance 25 MG TAKE 1 TABLET BY BIANCA TH EVERY MORNING Oral; Duration: 30 Active Amitriptyline HCl 25 MG TAKE 1 TABLET BY MOUTH AT BEDTIME Oral; Duration: 90 Not-Taking Aspirin Low Dose 81 MG TAKE 1 TABLET BY MOUTH EVERY DAY Oral; Duration: 90 Active Rosuvastatin Calcium 40 MG 1 capsule Orally Once a day; Duration: 30 day(s) 01/11/2024 Active metFORMIN HCl 1000 MG TAKE 1 TABLET BY M OUTH TWICE A DAY Oral; Duration: 90 Active glipiZIDE 5 MG 1 tablet 30 minutes before breakfast Orally Once a day; Duration: 30 day(s) 01/11/2024 Active metFORMIN HCl 1000 MG 1 tablet with a me al Orally Once a day; Duration: 30 day(s) 01/11/2024 Active Sertraline HCl 50 MG TAKE 1 TABLET BY MO UTH EVERY MORNING Oral; Duration: 90 Not-Taking MiraLax (colon prep) 17 GM/SCOOP 1/2 of a 238Gm bottle mixed with 1 quart of Gatorade or Crystal light 2 days before the colonoscopy, and then 1 238Gm bottle mixed with 2 quarts of Gatorade or Crystal Light Orally Do the 1/2 bottle 2 days before the colonoscopy, and then begin the full bottle at 5:00 p.m. the day before the procedure; Duration: 2 days 03/15/2024 Active Immunizations Vaccine Route [...] Problem Status W/U Status Risk Notes Problem Colon cancer screening (552019699) Colon cancer screening (Z12.11) Active confirmed Problem History of adenomatous polyp of colon (759036264) History of adenomatous polyp of colon (Z86.010) Active confirmed Problem Diverticular disease of colon (248101157) Diverticulosis of large intestine without perforation or abscess without bleeding (K57.30) Active confirmed Problem Preprocedural examination (371721013429048) Preprocedural examination (Z01.818) Active confirmed Plan Of Treatment Future Test Test Name Order Date COLONOSCOPY 07/08/2023 Insurance Providers Payer Name Payer Address Payer Phone Subscriber Number Group Number Insured Name Patient Relationship to Insured Coverage Start Date Coverage End Date MEDICA[employer] OF [employer] [address] [place] [address] [id number] DALTON MCCARTHY Self - patient is the insured Medical (General) History Medical History History ICD Code NIDDM HTN Colonoscopy done prior to at [facility] with removal of at least one tubular adenoma Denies IN,CVA,Lung disease,renal disease Surgical History Surgery Date(Month/Year) Hemorrhoids in his 20's
--- OUTSIDE RECORDS SUMMARY | 2025-06-28 07:31 | XMS_ITS | Clinical Summary ---
Author Organization [employer] Address [address] [place] [address] Care Team Providers Care Rn Progressive Care Name Role Phone Unavailable Primary Care Provider [...] FIT DNA/Cologuard 1959 FIT 1959 FOBT 1959 Lipid Panel 1959 SDOH Screening 1959 Sigmoidoscopy 1959 Alcohol/Substance Use Screening 1971 Tobacco Screening 1971 Hepatitis C Screening 12/13/1977 Pneumococcal Vaccine: 50+ Ye ars (1 of 1 - PCV) 12/13/2009 Zoster Vaccines (1 of 2) 12/13/2009 DTaP/Tdap/Td Vaccines (1 - Tdap) 08/04/2015 08/03/20 15 COVID-19 Vaccine (1 - 2023-2 5 season) 2025 Influenza Vaccine (#1) 2025 RSV Patients and Pa tients Aged 60 [...] patient's age to complete this topic Insurance [facility] STAND[facility] FULL
--- OUTSIDE RECORDS SUMMARY | 2025-06-28 07:31 | XMS_ITS | Clinical Summary ---
Author Organization [facility] Address [address] [place] [address] Phone Care Team Providers Care Swamper Name Role Phone Physician, Pcp Unknown Primary Care Provider Freida vailable Allergies No known active allergies Medications No known medications Encounters Date Type Department Care Team Description 05/27/2025 6:01 PM EDT - 05/28/2025 1:51 AM EDT Emergency [facility] Emergency [address] [place] [address] Discharge Disposition: Left Against Medical Advice from Last 3 Months Medical History Medical History Date Comments Diabetes mellitus ([facility] V24, [facility] V28) Social History Tobacco Use Types Packs/Day [...] Health Maintenance Due Date Last Done Comments Colorectal Cancer Screening: Colonoscopy 1960 DTaP,Tdap,and Td Vaccines (1 - Tdap) 12/13/1978 Pneumococcal Vaccine: 50+ Ye ars (1 of 1 - PCV) 12/13/2009 Zoster Vaccines (1 of 2) 12/13/2009 Depression Screening 09/12/2024 COVID-19 Vaccine (1 - 2023-2 5 season) 2025 Influenza Vaccine (#1) 2025 Abdominal Aortic Aneurysm (A AA) Screen 05/28/2025 Cholesterol Screening (Lipid Panel) 05/28/2025 Falls Risk Assessment 05/28/2025 Hepatitis C [...] 3 Months Results * ECG-Annotated (05/28/2025) us Provider Emily HERNANDEZ ECG ORDERABLES Final Result * ECG 12 lead (05/27/2025 9:01 PM EDT) Only the most recent of2 resultswithin the time period is included. Pathologist [facility] Ventricular Rate ECG 79 BPM GEMUSE Atrial Rate 79 BPM GEMUSE P-R Interval 152 ms GEMUSE QRS Duration 106 ms GEMUSE Q-T Interval 368 ms GEMUSE QTc 421 ms GEMUSE P Wave Rydal 70 degrees GEMUSE R Rydal 6 degrees GEMUSE T Rydal 53 degrees GEMUSE ECG Interpretation Normal sinus [...] resultswithin the time period is included. Pathologist [facility] High Sensitivity Troponin I <3 <=79 ng/L LAB CHEMISTRY METHOD 05/27/2025 9:30 PM EDT [facility] Blood Venous blood specimen / Unknown Venipuncture / Unknown 05/27/2025 8:58 PM EDT 05/27/2025 9:07 PM EDT Narrative [facility] - 05/27/2025 9:30 PM EDT High levels of biotin in samples may falsely decrease hsTroponin values. Use caution when interpreting hsTroponin results in patients taking biotin who exhibit renal impairment (eGFR <60) or in patients taking more than 20 mg/day of biotin. us Anibal Buckner MD LAB BLOOD ORDERABLES Final Resul t [facility] [address] [place] [address], * (ABNORMAL) CBC auto differential (05/27/2025 7:25 PM EDT) WBC 8.0 4.8 - 10.8 K/mcL LAB HEMETOLOGY METHOD 05/27/2025 8:07 PM EDT [facility] RBC 4.70 4.50 - 5.50 M/mcL LAB HEMETOLOGY METHOD 05/27/2025 8:07 PM EDT [facility] Hemoglobin 14.3 13.5 - 17.5 g/dL LAB HEMETOLOGY METHOD 05/27/2025 8:07 PM EDT [facility] Hematocrit 41.7(L) 42.0 - 54.0 % LAB HEMETOLOGY METHOD 05/27/2025 8:07 PM EDT [facility] MCV 88.3 79.0 - 98.0 FL LAB HEMETOLOGY METHOD 05/27/2025 8:07 PM EDT [facility] MCH 30.3 27.0 - 32.0 pcg LAB HEMETOLOGY METHOD 05/27/2025 8:07 PM EDT [facility] MCHC 34.3 32.0 - 37.0 g/dL LAB HEMETOLOGY METHOD 05/27/2025 8:07 PM [facility] RDW 13.5 11.0 - 15.0 % LAB HEMETOLOGY METHOD 05/27/2025 8:07 PM [facility] Platelets 164 130 - 400 K/mcL LAB HEMETOLOGY METHOD 05/27/2025 8:07 PM [facility] MPV 9.8 7.0 - 11.0 FL LAB HEMETOLOGY METHOD 05/27/2025 8:07 PM [facility] NRBC 0.0 <1.0 % LAB HEMETOLOGY METHOD 05/27/2025 8:07 PM [facility] NRBC Absolute 0.00 <0.10 K/mcL LAB HEMETOLOGY METHOD 05/27/2025 8:07 PM [facility] Neutrophils Relative 82.0 % LAB HEMETOLOGY METHOD 05/27/2025 8:07 PM [facility] Lymphocytes Relative 6.5 % LAB HEMETOLOGY METHOD 05/27/2025 8:07 PM [facility] Monocytes Relative 10.6 % LAB HEMETOLOGY METHOD 05/27/2025 8:07 PM [facility] Eosinophils Relative 0.1 % LAB HEMETOLOGY METHOD 05/27/2025 8:07 PM [facility] Basophils Relative 0.5 % LAB HEMETOLOGY METHOD 05/27/2025 8:07 PM [facility] Immature Granulocytes Relative 0.3 % LAB HEMETOLOGY METHOD 05/27/2025 8:07 PM [facility] Neutrophils Absolute 6.56 1.50 - 7.00 K/mcL LAB HEMETOLOGY METHOD 05/27/2025 8:07 PM [facility] Lymphocytes Absolute 0.52(L) 1.00 - 5.00 K/mcL LAB HEMETOLOGY METHOD 05/27/2025 8:07 PM EDT [facility] Monocytes Absolute 0.85 0.20 - 1.00 K/[facility] LAB HEMETOLOGY METHOD 05/27/2025 8:07 PM EDT [facility] Eosinophils Absolute 0.01 0.00 - 0.50 K/mcL LAB HEMETOLOGY METHOD 05/27/2025 8:07 PM EDT [facility] Basophils Absolute 0.04 0.00 - 0.20 K/[facility] LAB HEMETOLOGY METHOD 05/27/2025 8:07 PM EDT [facility] Immature Granulocytes Absolute 0.02 0.00 - 0.03 K/[facility] LAB HEMETOLOGY METHOD 05/27/2025 8:07 PM EDT [facility] Blood Venous blood specimen / Unknown Venipuncture / Unknown 05/27/2025 7:25 PM EDT 05/27/2025 7:50 PM EDT us Anibal Buckner MD LAB BLOOD ORDERABLES Final Resul t Performing Organization Address City/[facility]/ZIP Co de Phone Number [facility] [address] [place] [address], [place] [phone] * B-type natriuretic peptide (05/27/2025 7:25 PM EDT) BNP 6 <=100 pcg/mL LAB CHEMISTRY METHOD 05/27/2025 8:29 PM EDT [facility] Blood Venous blood specimen / Unknown Venipuncture / Unknown 05/27/2025 7:25 PM EDT 05/27/2025 7:50 PM EDT us Anibal Buckner MD LAB BLOOD ORDERABLES Final Resul t [facility] [address] [place] [address], [place] [phone] * (ABNORMAL) Magnesium (05/27/2025 7:25 PM EDT) Pathologist [facility] Magnesium 1.8(L) 1.9 - 2.6 mg/dL LAB CHEMISTRY METHOD 05/27/2025 8:25 PM EDT [facility] Blood Venous blood specimen / Unknown Venipuncture / Unknown 05/27/2025 7:25 PM EDT 05/27/2025 7:50 PM EDT us Anibal Buckner MD LAB BLOOD ORDERABLES Final Resul t Performing Organization Address City/[facility]/ZIP Co de Phone Number [facility] [address] [place] [address], [place] [phone] * Lipase (05/27/2025 7:25 PM EDT) Pathologist [facility] Lipase 18 13 - 75 unit/L LAB CHEMISTRY METHOD 05/27/2025 8:25 PM EDT [facility] Blood Venous blood specimen / Unknown Venipuncture / Unknown 05/27/2025 7:25 PM EDT 05/27/2025 7:50 PM EDT us Anibal Buckner MD LAB BLOOD ORDERABLES Final Resul t Performing Organization Address [facility]/ZIP Co de Phone Number [facility] [address] [place] [address], [place] [phone] * (ABNORMAL) Comprehensive metabolic panel (05/27/2025 7:25 PM EDT) Pathologist [facility] Sodium 136 133 - 145 mmol/L LAB CHEMISTRY METHOD 05/27/2025 8:25 PM EDT [facility] Potassium 3.8 3.5 - 5.5 mmol/L LAB CHEMISTRY METHOD 05/27/2025 8:25 PM EDT [facility] Chloride 104 96 - 110 mmol/L LAB CHEMISTRY METHOD 05/27/2025 8:25 PM [facility] CO2 23 21 - 32 mmol/L LAB CHEMISTRY METHOD 05/27/2025 8:25 PM [facility] Anion Gap 9 3 - 11 LAB CHEMISTRY METHOD 05/27/2025 8:25 PM [facility] Glucose 234(H) 70 - 100 mg/dL LAB CHEMISTRY METHOD 05/27/2025 8:25 PM [facility] BUN 21 5 - 25 mg/dL LAB CHEMISTRY METHOD 05/27/2025 8:25 PM [facility] Creatinine 1.18 0.70 - 1.30 mg/dL LAB CHEMISTRY METHOD 05/27/2025 8:25 PM [facility] eGFR 68 >=60 mL/min/1. 73m2 LAB CHEMISTRY METHOD 05/27/2025 8:25 PM [facility] Comment:Calculation based on the Chronic Kidney Disease Epidemiology Collaboration (CKD-EPI) equation refit without adjustment for race. BUN/Creatinine Ratio 17.8 LAB CHEMISTRY METHOD 05/27/2025 8:25 PM [facility] Calcium 9.6 8.5 - 10.5 mg/dL LAB CHEMISTRY METHOD 05/27/2025 8:25 PM [facility] AST (SGOT) 23 10 - 42 unit/L LAB CHEMISTRY METHOD 05/27/2025 8:25 PM [facility] ALT (SGPT) 35 10 - 60 unit/L LAB CHEMISTRY METHOD 05/27/2025 8:25 PM [facility] Alkaline Phosphatase 128(H) 42 - 121 unit/L LAB CHEMISTRY METHOD 05/27/2025 8:25 PM [facility] Total Protein 7.3 6.0 - 8.0 g/dL LAB CHEMISTRY METHOD 05/27/2025 8:25 PM [facility] Albumin 4.3 3.2 - 5.0 g/dL LAB CHEMISTRY METHOD 05/27/2025 8:25 PM EDT [facility] Total Bilirubin 0.5 0.0 - 1.4 mg/dL LAB CHEMISTRY METHOD 05/27/2025 8:25 PM EDT [facility] Blood Venous blood specimen / Unknown Venipuncture / Unknown 05/27/2025 7:25 PM EDT 05/27/2025 7:50 PM EDT us Anibal Buckner MD LAB BLOOD ORDERABLES Final Resul t [facility] [address] [place] [address], from Last 3 Months Insurance MEDICARE Care Teams Swamper Relationship Specialty Start Date End Date Physician, Pcp Unknown PCP - General 05/28/25
[2025-06-28 09:08] LABS: PSA,Total (Free>4and<10) < 0.10 ng/mL (0.00-4.00)
== END 2025-06-28 07:27 | disposition home or self-care (01) ==
LOC: HO.LAB 07:26
PROVIDERS: PCP Internal Medicine; Visit Provider Urology
DX: Z12.5 Encounter for screening for malignant neoplasm of prostate (principal); N40.1 Benign prostatic hyperplasia with lower urinary tract symptoms
CPT/HCPCS: 36415; 84153

== ENCOUNTER 2025-07-01 08:36 | Outpatient (REF) | payer MEDICARE, SELFPAY | END 2025-07-01 08:37 | disposition home or self-care (01) | LOC: HO.LAB 08:36 | PROVIDERS: PCP Internal Medicine; Visit Provider Urology | DX: N40.1 Benign prostatic hyperplasia with lower urinary tract symptoms (principal); E11.9 Type 2 diabetes mellitus without complications; N52.9 Male erectile dysfunction, unspecified; R39.12 Poor urinary stream; R35.1 Nocturia; Z12.5 Encounter for screening for malignant neoplasm of prostate; Z79.899 Other long term (current) drug therapy | CPT/HCPCS: 51798; 99212 ==

== ENCOUNTER 2025-07-01 08:36 | Outpatient (AMB) | payer MEDICARE, SELFPAY ==
--- NOTE | 2025-07-01 08:45 | A.OFFVIS_ITS ---
Intake Visit Reasons: 11 month follow up/ PSA Intake Note: Patient is present for 11M follow up/PSA * 10/29 PSA: 0.12 Urology Medication:SILDENAFIL,TAMSULOSIN,FINASTERIDE Antibiotic Allergy:NONE Blood Thinner:ASPIRIN PVR:0ml Combination Machine Tool Setter Required: No Allergies No Known Allergies Allergy (Verified 07/01/25 08:45) Medication List - Last Reconciled 07/01/25 by Cristian Benitez MD aspirin 81 mg PO DAILY empagliflozin (Jardiance) 25 mg PO QAM finasteride 5 mg PO DAILY glipizide ER 5 mg PO DAILY lisinopril 5 mg PO DAILY metformin 1,000 mg PO BID prednisone 20 mg PO DAILY 7 days sildenafil 100 mg PO DAILY PRN tamsulosin (Flomax) 0.4 mg PO BID valacyclovir 1,000 mg PO TID 7 days HPI Comments Details: 07/01/25--Drake is being monitored for BPH he is on Proscar and tamsulosin. Diabetes comorbidity. Urinalysis today is negative for blood or leukocytes. Review of chart PSA 06/28/2025 is <0.10 ng/mL. The patient states he feels this pressure when he is urinating. Scan PVR today is 0 mL. I have reassured the patient that he is emptying adequately. The patient is using generic Viagra 100 mg twice a week PRN and states that he is having adequate erections with the medication regimen. We will continue to monitor follow-up 08/03/24--6 month FU. He states he is using the tamsulosin twice a day and the Proscar twice a day. I have explained that I only want him to use the Proscar once a day. Discussed renal ultrasound results. Refill on generic Viagra p.r.n.. renal US --07/25/24---Kidneys within normal limits. estimated prostate volume- 26.2 mL, Bladder PVR-60.7 mL 12/15/2023--Drake is here for office cystoscopy. Had PSA 12/05/23----0.23ng/mL. Did not have renal ultrasound done. Rescheduled. Cystoscopy findings: prostatic urethra -trilobar enlargement, bulbous urethra WNL, no suspicious bladder lesions visualized. The Patient complains of decrease in rigidity every erections. Discussed Viagra versus Cialis will try Viagra 100 mg half a tab to 1 tab 30 minutes to 1 hour prior sexual activity. Discussed treatment options for enlarged prostate to i nclude GreenLight laser, TURP. Patient wants to continue meds for now. Discussed getting renal ultrasound completed. Plan-Viagra p.r.n., continue tamsulosin and Proscar, renal ultrasound ordered as long as normal will have nurses review results with patient. Otherwise follow- up in 6 months 11/03/2023--62-year-old male with complaints hesitancy and decreased force of stream States he has been on prostate medication for over a year. The patient is on finasteride 5 mg daily and tamsulosin 0.4 mg daily Review of consult referral notes PSA 05/26/2022--0.12 Comorbidity diabetes Bladder scan PVR today was 21 mL. Prostate exam mild to moderately enlarged, smooth plan--discussed Ultrasound retroperitoneum, PSA, I want him to increase the tamsulosin to twice a day and continue with the Proscar daily. Follow-up office cystoscopy. [facility] Medical History HTN (hypertension) Diabetes Surgical History H/O colonoscopy Social History Alcohol intake: never Patient Tobacco Use Status: Never used Tobacco Review of Systems Const All systems reviewed & are unremarkable except as noted in HPI and below Reports no additional complaints Eyes Reports no additional complaints ENT Reports no additional complaints Card Reports no additional complaints Resp Reports no additional complaints GI Reports no additional complaints Reports as per HPI Musc Reports no additional complaints Skin/Breast Reports system reviewed and no additional complaints, except as documented Neuro Reports no additional complaints Psych Reports no additional complaints Endo Reports no additional complaints Db/Lymph Reports no additional complaints Aller/Immun Reports no additional complaints Assessment & Plan Assessment & Plan (1) BPH loc w urin obs/LUTS: Code(s): N40.1 - Benign prostatic hyperplasia with lower urinary tract symptoms Category: Medical (2) Weak urinary stream: Code(s): R39.12 - Poor urinary stream Category: Medical (3) Nocturia: Code(s): R35.1 - Nocturia Category: Medical (4) Diabetes: Comment: NIDDM Code(s): E11.9 - Type 2 diabetes mellitus without complications Category: Medical (5) Erectile dysfunction: Code(s): N52.9 - Male erectile dysfunction, unspecified Category: Medical (6) Screening PSA (prostate specific antigen): Code(s): Z12.5 - Encounter for screening for malignant neoplasm of prostate Category: Medical Plan Plan-Viagra p.r.n., tamsulosin bid and Proscar, FU one year PSA prior Medications: New finasteride 5 mg PO DAILY 90 tabs 3RF Refilled tamsulosin (Flomax) 0.4 mg PO BID 180 caps 3RF Patient Instructions: The patient had an opportunity to ask questions regarding treatment plan. The patient expressed understanding and agreement with the above treatment plan. The patient is aware they should contact our office by phone for worsening of their current condition or the appearance of new symptoms. Compliance is encouraged with any medications and followup testing that is ordered. It is a privilege to be allowed the opportunity to participate in the urologic care of your patient. If you have any questions or concerns regarding treatment for the above conditions please do not hesitate to contact me. The office telep aldo contact is [phone]. This note is constructed in part using voice recognition software. While every effort has been made to ensure accuracy kindergarten prep teacher errors may have been included. Yours sincerely, Cristian Benitez MD Coding Level of Care Code Est Pt Level 3 (08599) Complex EM visit Add On G2211 Diagnoses BPH loc w urin obs/LUTS N40.1 Weak urinary stream R39.12 Nocturia R35.1 Diabetes E11.9 Erectile dysfunction N52.9 Screening PSA (prostate specific antigen) Z12.5
== END 2025-07-01 09:29 | disposition home or self-care (01) ==
LOC: HO.HUSH 08:37
PROVIDERS: PCP Internal Medicine; Visit Provider Urology
DX: N40.1 Benign prostatic hyperplasia with lower urinary tract symptoms (principal); R39.12 Poor urinary stream; R35.1 Nocturia; E11.9 Type 2 diabetes mellitus without complications; N52.9 Male erectile dysfunction, unspecified; Z12.5 Encounter for screening for malignant neoplasm of prostate
CPT/HCPCS: 99213; G2211